=== PATIENT | female | born 1960 | race Caucasian/White ===

== ENCOUNTER 2019-11-14 12:52 | Outpatient (CLI) | payer OTHER, SELFPAY ==
--- NOTE | ~2019-11-14 | CT_ITS ---
EXAMINATION: CT chest wo con EXAM DATE: 11/14/2019 13:18 INDICATION: Deformity of right-sided sternoclavicular region. TECHNIQUE: Spiral CT of the chest without contrast. Axial, coronal and sagittal images were reviewe d. Coronal maximum intensity pixel images of chest reviewed. The dose-length product (DLP) for this examination was 318.40 mGy-cm. The exposure was tailored according to patient size (auto mA exposur e control), and iterative reconstruction (ASIR) was used as additional dose reduction technique. The re is no prior study for comparison. FINDINGS: There is an externally placed marker identified. There is no subcutaneous mass or soft tiss ue mass identified deep to this. There is moderate bilateral acromioclavicular primary osteoarthritis , could be causing the palpable abnormality of concern. There is right basilar granuloma. There are no pleural or pericardial effusions. Tracheobronchial tree is patent. There is no mediastinal, hi lar or axillary lymphadenopathy. There is no pneumothorax. Heart normal in size. There is mild coronary arterial calcification, arterial sclerosis. Low-density 2 cm right liver lobe lesion, not s ignificantly changed compared to a CT from 2015 and previously evaluated with MR. There are cholecyst ectomy clips. There is moderate thoracic spondylosis without osteoblastic or osteolytic lesions iden tified. IMPRESSION: 1. Moderate bilateral acromioclavicular osteoarthritis. 2. Right upper lobe lesion unchanged likely benign. Reviewed, dictated and finalized at location B. 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
== END 2019-11-14 12:53 | disposition home or self-care (01) ==
PROVIDERS: PCP Family Medicine; Visit Provider Family Medicine
DX: M95.8 Other specified acquired deformities of musculoskeletal system (principal); M19.011 Primary osteoarthritis, right shoulder; M19.012 Primary osteoarthritis, left shoulder
CPT/HCPCS: 71250

== ENCOUNTER 2020-02-11 11:27 | Outpatient (CLI) | payer OTHER, SELFPAY ==
--- NOTE | ~2020-02-11 | MM_ITS ---
EXAMINATION: MM diagnostic una RT w maria alejandra HISTORY: Follow-up right breast calcifications. TECHNIQUE: Additional 3-D tomosynthesis images of the right breast were performed and synthetic 2-D i mages were generated. CAD analysis was submitted and interpreted. COMPARISON: Comparison to multiple prior studies sequentially, with oldest reviewed study dated 10/2013. FINDINGS: Breast composed of scattered areas of fibroglandular density. There are no new masses or ar chitectural distortion in the right breast. There are stable punctate calcifications in the upper out er quadrant of the right breast posteriorly, likely benign. IMPRESSION: 1. Stable likely benign right breast calcifications, upper outer quadrant. 2. Recommend 6 month follow-up diagnostic bilateral mammogram recommended BI-RADS category 3, probably benign findings. Reviewed, dictated and finalized at location A.
== END 2020-02-11 11:28 | disposition home or self-care (01) ==
PROVIDERS: PCP Family Medicine; Visit Provider Obstetrics & Gynecology
DX: R92.8 Other abnormal and inconclusive findings on diagnostic imaging of breast (principal)
CPT/HCPCS: 77061; 77065; G0279

== ENCOUNTER 2020-04-15 09:39 | Outpatient (CLI) | payer OTHER, SELFPAY ==
--- NOTE | 2020-04-15 11:00 | NEURO_ITS ---
Patient Number: [id number] Impression: # Complains of pain and numbness of hands. # Bilateral moderate Carpal Tunnel Syndrome. # Right ulnar neuropathy across the elbow. # Needle/EMG exam neurogenic. Nerve Conduction Studies Anti Sensory Summary Table Stim Site NR Peak (ms) P-T Amp (?V) Site1 Site2 Delta-P (ms) Dist (cm) El (m/s) Left Median Anti Sensory (2-3nd Digit) Wrist 3.8 25.9 Wrist 2-3nd Digit 3.8 14.0 37 Wrist 4.2 20.0 Wrist 2-3nd Digit 3.8 14.0 37 Right Median Anti Sensory (2-3nd Digit) Wrist 4.8 13.1 Wrist 2-3nd Digit 4.8 14.0 29 Wrist 5.4 15.0 Wrist 2-3nd Digit 4.8 14.0 29 Left Radial Anti Sensory (Base 1st Digit) Wrist 2.2 20.1 Wrist Base 1st Digit 2.2 0.0 Right Radial Anti Sensory (Base 1st Digit) Wrist 2.6 43.2 Wrist Base 1st Digit 2.6 0.0 Left Ulnar Anti Sensory (5th Digit) Wrist 2.4 29.4 Wrist 5th Digit 2.4 14.0 58 Right Ulnar Anti Sensory (5th Digit) Wrist 2.4 30.7 Wrist 5th Digit 2.4 14.0 58 Motor Summary Table Stim Site NR Onset (ms) O-P Amp (mV) Site1 Site2 Delta-0 (ms) Dist (cm) El (m/s) Left Median Motor (Abd Poll Brev) Wrist 5.1 2.3 Elbow Wrist 4.6 27.0 59 Elbow 9.7 1.5 Right Median Motor (Abd Poll Brev) Wrist 5.8 2.7 Elbow Wrist 4.2 26.0 62 Elbow 10.0 2.1 Left Ulnar Motor (Abd Dig Minimi) Wrist 2.7 8.7 A Elbow Wrist 4.6 29.0 63 A Elbow 7.3 6.5 Right Ulnar Motor (Abd Dig Minimi) Wrist 2.5 4.8 A Elbow Wrist 5.9 27.0 46 A Elbow 8.4 3.3 B Elbow Wrist 4.1 21.0 51 B Elbow 6.6 3.4 F Wave Studies NR F-Lat (ms) L-R F-Lat (ms) Left Median (Mrkrs) (Abd Poll Brev) 29.32 0.57 Right Median (Mrkrs) (Abd Poll Brev) 29.88 0.57 Left Ulnar (Mrkrs) (Abd Dig Min) 26.99 1.84 Right Ulnar (Mrkrs) (Abd Dig Min) 28.83 1.84 EMG Side Muscle Nerve Root Ins Act Fibs Amp Dur Recrt Comment Right 1stDorInt Ulnar C8-T1 Nml Nml Nml >12ms Reduced Right Ext Indicis Radial (Post Int) C7-8 Nml Nml Nml Nml Nml Right Ext Digitorum Radial (Post Int) C7-8 Nml Nml Nml Nml Nml Right BrachioRad Radial C5-6 Nml Nml Nml Nml Nml Right PronatorTeres Median C6-7 Nml Nml Nml Nml Nml Right Abd Poll Brev Median C8-T1 Nml Nml Nml >12ms Reduced Left 1stDorInt Ulnar C8-T1 Nml Nml Nml Nml Nml Left Ext Indicis Radial (Post Int) C7-8 Nml Nml Nml Nml Nml Left Ext Digitorum Radial (Post Int) C7-8 Nml Nml Nml Nml Nml Left BrachioRad Radial C5-6 Nml Nml Nml Nml Nml Left PronatorTeres Median C6-7 Nml Nml Nml Nml Nml Left Abd Poll Brev Median C8-T1 Nml Nml Nml >12ms Reduced Right ABD Dig Min Ulnar C8-T1 Nml Nml Nml >12ms Reduced Left ABD Dig Min Ulnar C8-T1 Nml Nml Nml Nml Nml MTDD
== END 2020-04-15 09:40 | disposition home or self-care (01) ==
PROVIDERS: PCP Family Medicine; Visit Provider Family Medicine
DX: G56.03 Carpal tunnel syndrome, bilateral upper limbs (principal)
CPT/HCPCS: 95886; 95911

== ENCOUNTER 2020-04-21 14:15 | Outpatient (CLI) | payer OTHER, SELFPAY ==
--- NOTE | ~2020-04-21 | XR_ITS ---
XR foot RT min 3V DATE: 04/21/2020 14:33 INDICATION: Fall 2 weeks ago. Lateral pain, right foot TECHNIQUE: 4 views COMPARISON: None FINDINGS: Prominent posterior and minimal plantar calcaneal enthesopathy. No fracture, dislocation, periosteal reaction or bone destruction is evident. IMPRESSION: Calcaneal enthesopathy No fracture or dislocation Reviewed, dictated and finalized at location B.
== END 2020-04-21 14:16 | disposition home or self-care (01) ==
LOC: ANHIMG 14:23
PROVIDERS: PCP Family Medicine; Visit Provider Family Medicine
DX: M79.671 Pain in right foot (principal); M77.31 Calcaneal spur, right foot
CPT/HCPCS: 73630

== ENCOUNTER 2020-05-29 10:19 | Emergency (ER) | payer OTHER, SELFPAY ==
--- NOTE | ~2020-05-29 | XR_ITS ---
EXAMINATION: XR elbow LT min 3V DATE: 05/29/2020 12:16 INDICATION: Left elbow pain, initial encounter TECHNIQUE: Anteroposterior, two oblique and lateral views of the left elbow were obtained. COMPARISON: None. FINDINGS: There is an acute, traumatic, closed, intra-articular fracture of the radial head. A small joint effusion is present. No additional acute osseous findings are posterior soft tissue swelling is noted at the olecranon. IMPRESSION: 1. Intra-articular fracture of the radial head with small elbow joint effusion. Reviewed, dictated and finalized at location B.
--- NOTE | ~2020-05-29 | XR_ITS ---
XR shoulder LT min 2V DATE: 05/29/2020 10:56 INDICATION: Fall down 3 steps last evening. Left shoulder injury. Generalized left shoulder pain. TECHNIQUE: 5 views COMPARISON: None FINDINGS: No fracture or dislocation, periosteal reaction or bone destruction or abnormal soft tissue calcification is detected. IMPRESSION: Negative left shoulder Reviewed, dictated and finalized at location A. IMPRESSION: Negative left shoulder
[2020-05-29 10:33] VITALS: BP 94/70; PULSE 90; RESP 16; TEMP 35.6; O2SAT 98
[2020-05-29 11:27] VITALS: BP 110/66; PULSE 89; RESP 19; O2SAT 98
[2020-05-29 11:28] VITALS: BP 110/66; PULSE 89; RESP 17; O2SAT 98
--- NOTE | 2020-05-29 11:54 | ED.UPPEXIN ---
HPI - Extremity Injury (Upper) General Chief Complaint: Extremity Injury, Upper <Austyn Pittman PA-C - Last Filed: 05/29/20 13:12> Stated Complaint: fell and hurt my shoulder <Austyn Pittman PA-C - Last Filed: 05/29/20 13:12> Time Seen by Provider: 05/29/20 11:15 <Austyn Pittman PA-C - Last Filed: 05/29/20 13:12> Source: patient <Austyn Pittman PA-C - Last Filed: 05/29/20 13:12> Mode of arrival: ambulatory <Austyn Pittman PA-C - Last Filed: 05/29/20 13:12> Limitations: no limitations <Austyn Pittman PA-C - Last Filed: 05/29/20 13:12> History of Present Illness HPI narrative: Patient is a 59-year-old female who presents to emergency department for evaluation of fall that occurred last night tripped fell backwards injuring the left shoulder and left elbow patient notes she did strike her head denies loss of consciousness syncope patient on arrival to emergency department complains of left shoulder and left elbow pain patient has not taken anything for her symptoms nor she been seen for this complaint <Austyn Pittman PA-C - Last Filed: 05/29/20 13:12> Related Data Home Medications: Home Medications Medication Instructions Recorded Confirmed lisinopril 20 mg tablet 20 mg PO BID 10/09/19 05/26/20 <Austyn Pittman PA-C - Last Filed: 05/29/20 13:12> Allergies/Adverse Reactions: Allergies Allergy/AdvReac Type Severity Reaction Status Date / Time levofloxacin Allergy Intermediate Nausea Verified 05/29/20 11:29 <Austyn Pittman PA-C - Last Filed: 05/29/20 13:12> Review of Systems Review of Systems: All systems reviewed & are unremarkable except as noted in HPI and below <Austyn Pittman PA-C - Last Filed: 05/29/20 13:12> [facility] Past Medical History Medical History: Medical History Acquired clavicle deformity Anxiety Benign essential hypertension Bilateral carpal tunnel syndrome Foot pain, right Hypothyroidism Ulnar nerve compression <LORRAINE Snow Last Filed: 05/29/20 13:12> Social History Social History: Social History Smoking status: Never smoker Alcohol intake: never <Austyn Pittman PA-C - Last Filed: 05/29/20 13:12> Exam Narrative: Exam Narrative: GENERAL: Well-appearing, well-nourished, and in no acute distress. HEAD: Normocephalic, atraumatic. EYES: PERRLA and EOMI. ENT: Nares clear, no rhinorrhea or epistaxis. Mucous membranes moist. NECK: Supple. No adenopathy or masses. CHEST: Clear to auscultation. No respiratory distress. No wheezes rales or rhonchi HEART: Regular rate and rhythm. No murmur heard. Normal peripheral pulses. EXTREMITIES: Normal range of motion. No edema. Patient with tenderness of the left shoulder joint as well as the left elbow joint patient has an abrasion of the posterior left elbow. No cervical thoracic or lumbar tenderness to palpation SKIN: Warm, dry, no rash. NEURO: No focal deficits. Alert and oriented x3. Cranial nerves II through XII grossly intact. Neurovascularly intact. Normal speech and gait PSYCH: Normal mood and affect. <LORRAINE Snow Last Filed: 05/29/20 13:12> Course Course Emergency Course: Patient was placed in long-arm splint patient will be referred to orthopedic surgery aware of case findings treatment plan and diagnosis <Austyn Pittman PA-C - Last Filed: 05/29/20 13:12> Consultations Consultation #1: Discussion was made with orthopedic surgery who will follow the patient in clinic <Austyn Pittman PA-C - Last Filed: 05/29/20 13:12> Date: 05/29/20 <LORRAINE Snow Last Filed: 05/29/20 13:12> Time: 13:08 <LORRAINE Snow Last Filed: 05/29/20 13:12> Vital Signs Vital signs: Vital Signs Temperature 35.6 C L 05/29/20 10:33 Pulse Rate 90 05/29/20 10:33 Respir
--- NOTE | 2020-05-29 12:06 | PC.NURSE ---
Pt to XRAY via WC.
[2020-05-29] MEDS: KETOROLAC (*BKC) 60 MG/2 ML VIAL 30 MG IM (12:15)
[2020-05-29 13:10] VITALS: BP 114/66; PULSE 86; RESP 14; O2SAT 100
[2020-05-29 13:24] VITALS: BP 116/66; PULSE 80; RESP 14; O2SAT 100
== END 2020-05-29 13:25 | disposition home or self-care (01) ==
PROVIDERS: Emergency Provider Emergency Medicine; PCP Family Medicine
DX: S52.122A Displaced fracture of head of left radius, initial encounter for closed fracture (principal); W01.0XXA Fall on same level from slipping, tripping and stumbling without subsequent striking against object, initial encounter; I10 Essential (primary) hypertension; E03.9 Hypothyroidism, unspecified
CPT/HCPCS: 29105; 73030; 73080; 96372; 99284; A4565; J1885

== ENCOUNTER 2020-09-23 12:37 | Outpatient (CLI) | payer OTHER, SELFPAY ==
--- NOTE | ~2020-09-23 | MR_ITS ---
EXAMINATION: MR shoulder LT wo con DATE: 09/23/2020 14:52 INDICATION: Left shoulder pain. Anterior displaced fracture of sternal end of left clavicle. TECHNIQUE: Magnetic resonance imaging (MRI) of the left shoulder was performed without intravenous co ntrast. Sequences included axial PD-weighted FS FSE, coronal oblique PD-weighted FS FSE and T2-weight ed FS FSE, and sagittal oblique T2-weighted FS FSE and T1-weighted FSE. COMPARISON: Left clavicle radiographs 07/20/2020 FINDINGS: Coracoacromial arch: The acromion undersurface is curved in morphology with anterior hook (type III). There is moderate ac romioclavicular joint osteoarthritis. There is mild subacromial/subdeltoid bursitis. Rotator cuff: There is moderate supraspinatus and infraspinatus tendinopathy. Teres minor tendon is normal. There i s moderate subscapularis tendinopathy. There is no asymmetric fatty atrophy of the rotator cuff muscl e bellies. Biceps tendon and glenoid labrum: Biceps tendon is in bicipital groove. The intra-articular biceps tendon is normal. The glenoid labrum is normal. Fluid: There is a small glenohumeral joint effusion. Bones/cartilage: There is oblique fracture of head of left clavicle. The distal fracture fragment demonstrates 9 mm an terior displacement. Glenoid cartilage is normal. Humeral head cartilage is normal. IMPRESSION: 1. Oblique fracture of head of left clavicle. 2. Moderate rotator cuff tendinopathy. No tear. 3. Moderate acromioclavicular joint osteoarthritis. 4. Mild subacromial/subdeltoid bursitis. 5. Small glenohumeral joint effusion. Reviewed, dictated and finalized at location A. 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
== END 2020-09-23 12:38 | disposition home or self-care (01) ==
PROVIDERS: PCP Family Medicine; Visit Provider Orthopaedic Surgery
DX: S42.013A Anterior displaced fracture of sternal end of unspecified clavicle, initial encounter for closed fracture (principal); X58.XXXA Exposure to other specified factors, initial encounter; M19.012 Primary osteoarthritis, left shoulder; M25.412 Effusion, left shoulder
CPT/HCPCS: 73221

== ENCOUNTER 2020-12-05 09:15 | Outpatient (CLI) | payer OTHER, SELFPAY ==
[2020-12-05 09:30] LABS: Basophils Percent Auto 0.6 % (0.2-1.2); Eosinophils Absolute Auto 0.1 K/mm3 (0-0.3); Hematocrit 40.6 % (37.0-47.0); Hemoglobin 13.7 g/dL (12.0-15.0); Immature Granulocyte Absolute 0.01 K/mm3 (0.00-0.031); Immature Granulocyte Percent A 0.2 % (0-0.5); Lymphocytes Absolute Auto 1.94 K/mm3 (0.9-3.2); Lymphocytes Percent Auto 30.2 % (18.3-44.2); Mean Corpuscular HGB Conc 33.7 g/dl (32-36); Mean Corpuscular Hemoglobin 31.7 pg (26-34); Mean Platelet Volume 9.6 fl (7.4-10.4); Monocytes Absolute Auto 0.5 K/mm3 (0.1-0.6); Monocytes Percent Auto 7.8 % (2.6-8.5); Neutrophils Absolute Auto 3.8 K/mm3 (1.3-6.7); Neutrophils Percent Auto 59.2 % (45.5-73.1); Platelet Count Result 191 k/mm3 (150-375); Red Blood Count 4.32 M/mm3 (4.2-5.4); Red Cell Distribution Width 13.6 % (11.5-14.5); White Blood Count 6.4 K/mm3 (4.5-10.0)
[2020-12-05 10:01] LABS: Alanine Aminotransferase 21 U/L (4-35); Albumin Level 4.1 g/dL (3.5-5.1); Alkaline Phosphatase 88 U/L (38-126); Anion Gap 5 mmol/L (8-16); Aspartate Amino Transferase 26 U/L (14-36); Bilirubin,Total 0.8 mg/dL (0.2-1.3); Blood Urea Nitrogen 18 mg/dL (7-17); Calcium 9.1 mg/dL (8.4-10.2); Carbon Dioxide 33 mmol/L (22-30); Chloride 103 mmol/L (98-107); Cholesterol 159 mg/dL (0-200); Estimated Glomerular Filt Rate > 60; Glucose 96 mg/dL (65-105); HDL Direct 42 mg/dL; Potassium 4.4 mmol/L (3.4-5.0); Sodium 141 mmol/L (137-145); Triglycerides 105 mg/dL (<150)
[2020-12-05 10:12] LABS: LDL Cholesterol Direct 94 mg/dL
== END 2020-12-05 09:16 | disposition home or self-care (01) ==
LOC: ANHLAB 09:17
PROVIDERS: PCP Family Medicine; Visit Provider Physician Assistant Medical
DX: I10 Essential (primary) hypertension (principal); K76.0 Fatty (change of) liver, not elsewhere classified; Z13.220 Encounter for screening for lipoid disorders; E03.9 Hypothyroidism, unspecified
CPT/HCPCS: 36415; 80053; 80061; 84443; 85025

== ENCOUNTER 2021-03-12 08:24 | Outpatient (CLI) | payer OTHER, SELFPAY ==
--- NOTE | ~2021-03-12 | US_ITS ---
EXAMINATION: US abdomen complete DATE: 03/12/2021 09:04 INDICATION: Unspecified abdominal pain TECHNIQUE: Multiple grayscale and Doppler ultrasound images of the abdomen were obtained. COMPARISON: MRI, 06/23/2015 FINDINGS: The head and body of the pancreas are normal. The pancreatic tail is obscured by bowel gas. The liver demonstrates increased echogenicity, heterogenous echotexture, and decreased through trans mission. The known hemangioma of the right hepatic lobe is not well demonstrated. No surface nodulari ty. Normal hepatopetal flow in the main portal vein. The gallbladder is surgically absent. The normal common bile duct measures 5 mm. The visualized portions of the aorta and inferior vena cava are norm al. The right kidney measures 9.5 x 5.1 x 4.7 cm. The left kidney measures 10.6 x 4.9 x 5.4 cm. The kidne ys demonstrate normal parenchymal echogenicity. There is no hydronephrosis. The spleen is normal in a ppearance and measures 10.1 cm. IMPRESSION: 1. No sonographic correlate for the patient's symptoms. 2. Diffuse hepatic steatosis. Reviewed, dictated and finalized at location A.
== END 2021-03-12 08:25 | disposition home or self-care (01) ==
PROVIDERS: PCP Family Medicine; Visit Provider Family Medicine
DX: R10.9 Unspecified abdominal pain (principal); K76.0 Fatty (change of) liver, not elsewhere classified
CPT/HCPCS: 76700

== ENCOUNTER 2021-05-05 13:30 | Outpatient (RCR) | payer OTHER, SELFPAY ==
--- NOTE | 2021-04-07 13:49 | PTOPEVAL ---
INITIAL PHYSICAL THERAPY EVALUATION and PLAN OF CARE Thank you for referring Melanie Stanley to [facility].? Melanie is scheduled to be seen for physical therapy? 2x/week for 4 weeks. Please review, sign, date and return this plan of care SHERRILL. I agree with and certify that the following plan of care is medically necessary. Referring Physician Date Admitting Provider: Attending Provider: WILLY oPrtillo Referring Provider: *PT Outpatient Evaluation Start: 04/07/21 12:36 Freq: Status: Active Protocol: Document 04/07/21 12:36 LUI (Rec: 04/07/21 13:48 LUI [id number]) Therapy Assessment Status Assessment Status Assessment Status Evaluation Outpatient Past Medical History Past Medical History Source of Past Medical History Patient Cardiovascular History Hx Hypertension Yes Gastrointestinal History Hx Appendectomy Yes: 1999 Hx Cholecystectomy Yes: 1989 Musculoskeletal History Hx Fractures Yes: L radial head fx, L clavicle fx Hx Other Musculoskeletal Disorders Yes: bilateral carpal tunnel, ulnar nerve compression, R foot pain Endocrine History Hx Hypothyroidism Yes Evaluation Information Problem Diagnosis Lumbago with sciatica, R and L side, chronic pain Onset 10 years Additional Evaluation Detail 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 She will have Family increased pain with prolonged sitting or with lots of walking. Gains some relief of discomfort when lying on back on a harder surface. But as soon as she gets back up - pain returns. Did see chiropractor in past - temporary relief obtained. No problems sleeping. Moves slow in the morning. Not real relief with hot or cold on back. 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
--- NOTE | 2021-04-30 13:33 | PCPTNOTE ---
Patient called & cancelled scheduled appointment this date due to illness - vomiting.
--- NOTE | 2021-05-05 14:32 | PTOPEVAL ---
PHYSICAL THERAPY DISCHARGE SUMMARY Thank you for referring Melanie Stanley to [facility].? Melanie has been seen x 7 visits in PT - short term day of PT relief has been achieved but no longer carry over has been achieved. Melanie has been encouraged to continue with her HEP. I agree with Melanie's discharge from PT. Referring Physician Date Admitting Provider: Attending Provider: WILLY Portillo Referring Provider: Therapy Assessment Status Assessment Status Assessment Status Discharge Evaluation Information Problem Diagnosis Lumbago with sciatica, R and L side, chronic pain Subjective Information Melanie states that sitting/ Query Text:As Reported By Patient/ driving is still bothering her Family . If she limits her activity she feels better - but then when she goes to move around increase in discomfort. She does state that she does receive some relief of discomfort day of treatment but the discomfort returns the next day. Pain Assessment Timing of Pain Assessment Timing of Pain Assessment Assessment Pain Scale Pain Scale Used Numeric (1 - 10) Self Report Pain Assessment Lower Back Reported Pain Level 5 Lowest Pain Intensity 3 Greatest Pain Intensity 9 Cervical and Lumbar ROM Lumbar ROM Lumbar Flexion (0-90) 45 Query Text:Active in Degrees Lumbar Extension (0-40) 15 Query Text:Active in Degrees Lumbar Lateral Flexion Right (0-40) 12 Query Text:Active in Degrees Lumbar Lateral Flexion Left (0-40) 12 Query Text:Active in Degrees Lumbar Comments discomfort with trunk flexion and R > L side bending pelvis level - very mild decrease with R SIJ motion with trunk motion Palpation Assessment Palpation Palpation P-A mob done - decreased sacral discomfort, none with lumbar spine, marked increased tenderness R buttock - centrally towards insertion PT Clinical Summary Clinical Summary Protocol: PTEVCODE PT Clinical Summary Modified Oswestry LBP Questionnaire - 44% Melanie states that when has PT - the rest of the day she feels better. Still limited with sitting and activity level. W
== END 2021-05-10 09:11 | disposition home or self-care (01) ==
LOC: ANHHIPT 13:30
PROVIDERS: PCP Family Medicine; Visit Provider Physician Assistant Medical
DX: M54.41 Lumbago with sciatica, right side (principal); M54.42 Lumbago with sciatica, left side; G89.29 Other chronic pain
CPT/HCPCS: 97014; 97110; 97140; 97162; G0283

== ENCOUNTER 2021-05-12 14:06 | Outpatient (CLI) | payer OTHER, SELFPAY ==
--- NOTE | ~2021-05-12 | XR_ITS ---
XR_CERV2-3V_CR DATE: 05/12/2021 14:26 INDICATION: Neck pain TECHNIQUE: AP, open-mouth, lateral, swimmer views COMPARISON: None FINDINGS: C1 and C2 are normally aligned and the odontoid process is intact. No fracture or dislocati on or locked facet or prevertebral soft tissue swelling. Cervical interspaces appear preserved. IMPRESSION: No significant abnormality Reviewed, dictated and finalized at Location A. Reviewed, dictated and finalized at location A. IMPRESSION: No significant abnormality
== END 2021-05-12 14:07 | disposition home or self-care (01) ==
LOC: ANHIMG 14:09
PROVIDERS: PCP Family Medicine; Visit Provider Physician Assistant Medical
DX: M54.2 Cervicalgia (principal); G89.29 Other chronic pain
CPT/HCPCS: 72040

== ENCOUNTER 2021-07-07 12:18 | Outpatient (CLI) | payer OTHER, SELFPAY ==
--- NOTE | ~2021-07-07 | XR_ITS ---
XR abdomen/kub 1V 07/07/2021 12:46 INDICATION: Hematuria TECHNIQUE: KUB COMPARISON: CT dated 06/17/2015 FINDINGS: Bowel gas pattern is normal. There is no evidence of free air, mass, organomegaly, ascites or obstruction. No abnormal calculi are seen. The bones appear intact. There are cholecystectomy c lips. There is moderate lower thoracic and lumbar spondylosis with dextrocurvature scoliosis. IMPRESSION: 1: No acute abdominal abnormality identified. Reviewed, dictated and finalized at location B.
== END 2021-07-07 12:19 | disposition home or self-care (01) ==
LOC: ANHIMG 12:19
PROVIDERS: PCP Family Medicine; Visit Provider Physician Assistant Medical
DX: R31.9 Hematuria, unspecified (principal); R10.9 Unspecified abdominal pain
CPT/HCPCS: 74018

== ENCOUNTER 2021-07-10 08:00 | Outpatient (CLI) | payer OTHER, SELFPAY ==
--- NOTE | ~2021-07-10 | CT_ITS ---
EXAMINATION: CT abdomen pelvis wo con DATE: 07/10/2021 08:27 INDICATION: Hematuria TECHNIQUE: Computed tomography (CT) of the abdomen and pelvis was performed without intravenous contr ast. The dose-length product (DLP) was 517.65 mGy-cm. Automated exposure control and iterative recons truction technique were employed. COMPARISON: 06/17/2015 FINDINGS: Minimal dependent atelectasis is present in the lung bases. The heart size is normal. There is a calcified granuloma of the right lower lobe. The gallbladder is surgically absent. The spleen, pancreas, and adrenal glands are normal. A chronic, stable lesion of the right hepatic lobe has been previously characterized as a hemangioma. The kidneys are normal. No stones are identified in the kid neys, ureters, or bladder. There is no hydronephrosis or hydroureter. There is chronic periportal lym phadenopathy, likely reactive. There is no free intraperitoneal gas or evidence of bowel obstruction. Colonic diverticulosis is present without evidence of diverticulitis. There is severe lumbar spondyl osis. IMPRESSION: 1. No CT correlate for the patient's symptoms. Reviewed, dictated and finalized at location A.
== END 2021-07-10 08:01 | disposition home or self-care (01) ==
LOC: ANHIMG 08:04
PROVIDERS: PCP Family Medicine; Visit Provider Family Medicine
DX: R31.29 Other microscopic hematuria (principal)
CPT/HCPCS: 74176

== ENCOUNTER 2021-08-05 11:37 | Emergency (ER) | payer OTHER, SELFPAY ==
[2021-08-05 11:49] VITALS: BP 131/79; PULSE 66; RESP 16; TEMP 36.5; O2SAT 100
[2021-08-05] MEDS: ONDANSETRON HCL ODT 4 MG TABLET PO (13:46)
[2021-08-05] MEDS: KETOROLAC (*BKC) 60 MG/2 ML VIAL IM (13:46)
[2021-08-05] MEDS: HYDROmorphone HCL INJ (*CRX) 1 MG/ML SYR IM (13:47)
--- NOTE | 2021-08-05 13:50 | ED.BACK ---
HPI - Back Pain/Injury General Chief Complaint: Back Pain/Injury Stated Complaint: L HIP/BUTTOCK PAIN Time Seen by Provider: 08/05/21 13:13 Source: patient, RN notes reviewed and old records reviewed Mode of arrival: ambulatory Limitations: no limitations History of Present Illness HPI Narrative: This is a 60 year old female who presents for evaluation of left flank pain. She developed pain approximately 1 month ago. She is having sharp pain located left lower flank that is radiating to her left hip and thigh. She was evaluated by her PCP for this pain, and she had Urinalysis, KUB and CT abdomen and pelvis performed. She was also started on muscle relaxer and tramadol. Her KUB and CT were negative for kidney stones but it did show severe lumbar spondylosis. She has been referred to pain management but patient states that clinic is closed. She is continuing to have pain so she came to ER. Her pain is intermittently worsening, and it is worse with walking sometimes. She reports numbness to left thigh but denies leg weakness. She denies abdominal pain, nausea, vomiting, fever, chills, urinary retention or bowel incontinence. She last took tramadol for pain this morning. She currently rates pain as 8/10. Related Data Allergies Allergy/AdvReac Type Severity Reaction Status Date / Time levofloxacin Allergy Intermediate Nausea Verified 07/07/21 11:01 Review of Systems Review of Systems: All systems reviewed & are unremarkable except as noted in HPI and below PMFSH Past Medical History Medical History Acquired clavicle deformity Adult BMI 36.0-36.9 kg/sq m Anxiety Benign essential hypertension Bilateral carpal tunnel syndrome BMI 35.0-35.9,adult BMI 37.0-37.9, adult Carpal tunnel syndrome of right wrist Clavicle fracture, sternal end Foot pain, right Hypothyroidism Left radial head fracture Ulnar nerve compression Surgical History Surgical History History of appendectomy History of cholecystectomy Family History Family History Father Carcinoma of colon Mother No problems noted. Sibling No problems noted. 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 Gender identity (if verbalized by the patient): Female Sexual Orientation (if Verbalized by the Patient): Straight or Heterosexual Spiritual care concerns: No Agree to blood products: Yes Exam Const: General: no acute distress and alert Orientation/consciousness: patient oriented x3 HENMT: Head: normocephalic and atraumatic Ears: normal EAC's Eyes: Pupils: Equal, round and reactive pupils present EOM: EOMs intact bilaterally Resp: Effort & Inspection: normal respiratory effort and no retractions Auscultation: clear to auscultation bilaterally Cardio: Rate: regular rate Rhythm: regular rhythm Heart sounds: no murmurs Other: bilateral palpable pedal pulses GI: GI Palp: Yes Soft to palpation, No Tenderness to palpation present (GI) and No Guarding due to palpation present (GI) Auscultation: normal bowel sounds : General: Yes no CVA tenderness Back/Spine/Pelvis: Thoracic/Lumbar Spine: straight leg raise negative bilaterally Skin: General skin exam: normal color Rashes: no rashes Neuro: General: patient oriented x3, moves all extremities and CN's II-XI intact bilaterally Course Reevaluation(s) Reevaluation #1: I Discussed with patient that I reviewed imaging and Ua performed for her symptoms. Her pain seems to be related to lumbar radicu
[2021-08-05 14:15] LABS: Add Urine Microscopic? YES; Appearance Urine Clear (Clear); Bilirubin Urine Negative (Negative); Blood Urine Negative (Negative); Color Urine Yellow (Yellow); Glucose Urine UA Negative (Negative); Ketones Urine Negative (Negative); Leukocyte Esterase Ur Trace LEU/UL (Negative); Mucus Urine Rare /lpf; Nitrate Urine Negative (Negative); Protein Urine Negative (Negative); Specific Grav Ur 1.011 (1.001-1.035); Squamous Epithelial Cell Urine Rare /hpf (Few); Urobilinogen Urine Negative mg/dL (<2.0); WBC Urine 0-3 /hpf
[2021-08-05 14:42] VITALS: BP 141/79; PULSE 70; RESP 16; O2SAT 98
== END 2021-08-05 14:59 | disposition home or self-care (01) ==
PROVIDERS: Emergency Provider General Practice; PCP Family Medicine
DX: M54.16 Radiculopathy, lumbar region (principal); I10 Essential (primary) hypertension; E03.9 Hypothyroidism, unspecified; F41.9 Anxiety disorder, unspecified
CPT/HCPCS: 81001; 96372; 99284; A9270; J1170; J1885

== ENCOUNTER 2021-10-25 14:00 | Outpatient (CLI) | payer OTHER, SELFPAY ==
--- NOTE | ~2021-10-25 | XR_ITS ---
XR chest 2V DATE: 10/25/2021 14:14 INDICATION: Cough for 2 months. Pneumonia. TECHNIQUE: PA and lateral views COMPARISON: November 14, 2019 CT chest November 23, 2015 2 view chest FINDINGS: Heart size is within normal range. Is aortic tortuosity. No pulmonary infiltrate or consolidation, pleural effusion or pulmonary vascular congestion or pneumo thorax. Scoliosis and degenerative spurring of the thoracic and lumbar spine. Status post cholecystectomy. IMPRESSION: No active cardiopulmonary disease Reviewed, dictated and finalized at location A. 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
== END 2021-10-25 14:01 | disposition home or self-care (01) ==
PROVIDERS: PCP Family Medicine; Visit Provider Nurse Practitioner Family
DX: J18.9 Pneumonia, unspecified organism (principal)
CPT/HCPCS: 71046

== ENCOUNTER 2022-01-17 13:27 | Emergency (ER) | payer OTHER, SELFPAY ==
--- NOTE | ~2022-01-17 | XR_ITS ---
EXAMINATION: XR shoulder LT min 2V INDICATION: Left shoulder pain TECHNIQUE: Four views of the left shoulder are submitted. COMPARISON: 05/29/2020 FINDINGS: Normal alignment. No shoulder fracture. There is moderate osteoarthritis of the acromioclav icular joint. Mild glenohumeral joint osteoarthritis is noted. Soft tissues are unremarkable. IMPRESSION: 1. No acute osseous abnormality of the left shoulder. Reviewed, dictated and finalized at location A.
--- NOTE | ~2022-01-17 | CT_ITS ---
EXAMINATION: CT cervical spine wo con DATE: 01/17/2022 17:08 INDICATION: Neck pain TECHNIQUE: Computed tomography (CT) of the cervical spine was performed without intravenous contrast. The dose-length product (DLP) was 927.53 mGy-cm. Automated exposure control and iterative reconstruc tion technique were employed. COMPARISON: None FINDINGS: There is no fracture, dislocation, or subluxation. The vertebral body heights and intervert ebral disc spaces are maintained. The odontoid is intact. The prevertebral soft tissues are normal. T here is mild facet and uncovertebral joint osteoarthritis. Calcified nodules of the thyroid measure u p to 1.4 cm on the right. IMPRESSION: 1. Mild cervical spondylosis without acute findings. 2. Multiple thyroid nodules. Consider nonemergent thyroid ultrasound for risk stratification. Reviewed, dictated and finalized at location A. IMPRESSION: 1. Mild cervical spondylosis without acute findings. 2. Multiple thyroid nodules. Consider nonemergent thyroid ultrasound for risk s tratification.
--- NOTE | ~2022-01-17 | XR_ITS ---
EXAMINATION: XR chest 2V DATE: 01/17/2022 15:48 INDICATION: Left rib pain TECHNIQUE: PA and lateral views of the chest are obtained. COMPARISON: Radiographs from today FINDINGS: There is mild atelectasis of the left lung base. A trace left pleural effusion is present. There is no pneumothorax. The cardiomediastinal silhouette is normal. There is moderate thoracic spon dylosis. Suspected nondisplaced left rib fractures described on rib series are not well demonstrated. IMPRESSION: 1. Minimal left basilar atelectasis. 2. Small left pleural effusion. Reviewed, dictated and finalized at location A.
--- NOTE | ~2022-01-17 | XR_ITS ---
EXAMINATION: XR ribs LT 2V INDICATION: Left rib pain TECHNIQUE: Four views of the left ribs were obtained. COMPARISON: 10/25/2021 FINDINGS: Mild atelectasis of the left lung base. The heart size is normal. There are questionable no ndisplaced fractures of the anterolateral left third, fourth, and fifth ribs. Thoracolumbar dextrosco liosis is noted. Surgical clips in the right upper quadrant are likely from prior cholecystectomy. IMPRESSION: 1. Possible nondisplaced anterolateral fractures of the left third through fifth ribs. Reviewed, dictated and finalized at location A. IMPRESSION: 1. Possible nondisplaced anterolateral fractures of the left third through fift h ribs.
[2022-01-17 14:39] VITALS: BP 172/102; PULSE 78; RESP 18; TEMP 36.3; O2SAT 98
[2022-01-17 14:47] VITALS: RESP 18
[2022-01-17 15:58] VITALS: BP 184/106; PULSE 71; RESP 18; O2SAT 98
--- NOTE | 2022-01-17 16:04 | PC.NURSE ---
Pt educated on how to use incentive spirometer.
--- NOTE | 2022-01-17 16:38 | ECG_ITS ---
Measurements Intervals [place] Rate: 77 P: 60 VT: 200 QRS: 20 QRSD: 78 T: 26 QT: 340 QTc: 385 Interpretive Statements SINUS RHYTHM BORDERLINE T WAVE ABNORMALITY- ANTEROLATERAL LEADS BASELINE ARTIFACT- I, II, III, AVR, AVL, AVF, V1 BORDERLINE ECG Electronically Signed On 01-17-2022 17:43:57 CDT by Corey Abdi D.O.
[2022-01-17] MEDS: HYDROcodone/acetaminophen (*CRX) 5-325 MG TABLET 1 TAB PO (16:48)
[2022-01-17 17:04] LABS: Basophils Percent Auto 0.5 % (0.2-1.2); Eosinophils Absolute Auto 0.2 K/mm3 (0-0.3); Eosinophils Percent Auto 1.9 % (0-4.4); Hematocrit 42.5 % (37.0-47.0); Hemoglobin 14.3 g/dL (12.0-15.0); Immature Granulocyte Absolute 0.03 K/mm3 (0.00-0.031); Immature Granulocyte Percent A 0.4 % (0-0.5); Lymphocytes Absolute Auto 2.21 K/mm3 (0.9-3.2); Mean Corpuscular HGB Conc 33.6 g/dl (32-36); Mean Corpuscular Hemoglobin 31.4 pg (26-34); Mean Corpuscular Volume 93.4 fl (80-100); Monocytes Absolute Auto 0.6 K/mm3 (0.1-0.6); Monocytes Percent Auto 7.5 % (2.6-8.5); Neutrophils Absolute Auto 5.4 K/mm3 (1.3-6.7); Neutrophils Percent Auto 63.7 % (45.5-73.1); Platelet Count Result 194 k/mm3 (150-375); Red Blood Count 4.55 M/mm3 (4.2-5.4); Red Cell Distribution Width 13.1 % (11.5-14.5); White Blood Count 8.5 K/mm3 (4.5-10.0)
--- NOTE | 2022-01-17 17:04 | PC.NURSE ---
Pt to CT via w/c
[2022-01-17 17:15] LABS: Anion Gap 8 mmol/L (8-16); Blood Urea Nitrogen 14 mg/dL (7-17); Calcium 9.4 mg/dL (8.4-10.2); Carbon Dioxide 29 mmol/L (22-30); Chloride 101 mmol/L (98-107); Estimated CRCL calculation 77 ml/min; Estimated Glomerular Filt Rate > 60; Glucose 101 mg/dL (65-110); Potassium 4.4 mmol/L (3.4-5.0); Sodium 138 mmol/L (137-145)
--- NOTE | 2022-01-17 17:25 | ED.FALL ---
HPI - Fall General Chief Complaint: Fall <Elena Juarez PA-C - Last Filed: 01/17/22 18:45> Stated Complaint: fall, rib pain <LORRAINE Ruth Last Filed: 01/17/22 18:45> Time Seen by Provider: 01/17/22 15:05 <LORRAINE Ruth Last Filed: 01/17/22 18:45> Source: patient <LORRAINE Ruth Last Filed: 01/17/22 18:45> Mode of arrival: ambulatory <LORARINE Ruth Last Filed: 01/17/22 18:45> Limitations: no limitations <LORRAINE Ruth Last Filed: 01/17/22 18:45> History of Present Illness HPI Narrative: This is a 61 year old female that presents to the ER for left sided rib pain present after a fall last week. Reports she stripped while in the yard mowing the lawn. Reports landing on her left side. Reports today the pain started to radiate into her neck and left shoulder. She has not been evaluated since the fall. Denies hitting her head, loss of consciousness, shortness of breath, vision changes, vomiting, or numbness. <Elena Juarez PA-C - Last Filed: 01/17/22 18:45> Related Data Allergies/Adverse Reactions: Allergies Allergy/AdvReac Type Severity Reaction Status Date / Time levofloxacin Allergy Intermediate Nausea Verified 01/10/22 14:20 <LORRAINE Ruth Last Filed: 01/17/22 18:45> Review of Systems Review of Systems: CONSTITUTIONAL: Denies fever EYES: Denies visual changes CARDIOVASCULAR: Reports chest pain RESPIRATORY: Denies dyspnea. MUSCULOSKELETAL: Reports joint pain and myalgia. Denies back pain NEUROLOGIC: Denies numbness <LORRAINE Ruth Last Filed: 01/17/22 18:45> All systems reviewed & are unremarkable except as noted in HPI and below <LORRAINE Ruth Last Filed: 01/17/22 18:45> [facility] Past Medical History Medical History: Medical History Acquired clavicle deformity Adult BMI 36.0-36.9 kg/sq m Anxiety Benign essential hypertension Bilateral carpal tunnel syndrome BMI 35.0-35.9,adult BMI 36.0-36.9,adult BMI 37.0-37.9, adult BMI 37.0-37.9, adult Carpal tunnel syndrome of right wrist Clavicle fracture, sternal end Foot pain, right Hypothyroidism Left radial head fracture Leg laceration Ulnar nerve compression Urinary urgency <Elena Juarez PA-C - Last Filed: 01/17/22 18:45> Surgical History Surgical History: Surgical History History of appendectomy History of cholecystectomy <Elena Juarez PA-C - Last Filed: 01/17/22 18:45> Family History Family History: Family History Father Carcinoma of colon Mother No problems noted. Sibling No problems noted. 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 HEAD: Normocephalic, atraumatic. EYES: EOMI. ENT: Nares clear, no rhinorrhea or epistaxis. Mucous membranes moist. Oropharynx without tonsillar hypertrophy exudate or other lesions. Bilateral TMs pearly ornelas non-bulging NECK: Supple. No adenopathy or masses. CHEST: Clear to auscultation. No respiratory distress. No wheezes rales or rhonchi. Tender to palpation in
[2022-01-17 17:27] LABS: Troponin I < 0.012 ng/mL (0.000-0.034)
[2022-01-17 17:46] VITALS: BP 162/108; PULSE 73; RESP 18; O2SAT 99
== END 2022-01-17 18:52 | disposition home or self-care (01) ==
PROVIDERS: Physician Assistant; Emergency Provider Emergency Medicine; PCP Family Medicine
DX: S22.42XA Multiple fractures of ribs, left side, initial encounter for closed fracture (principal); E04.2 Nontoxic multinodular goiter; I10 Essential (primary) hypertension; E03.9 Hypothyroidism, unspecified; M47.812 Spondylosis without myelopathy or radiculopathy, cervical region; R94.31 Abnormal electrocardiogram [ECG] [EKG]; W01.0XXA Fall on same level from slipping, tripping and stumbling without subsequent striking against object, initial encounter; Y93.H2 Activity, gardening and landscaping
CPT/HCPCS: 36415; 71046; 71100; 72125; 73030; 80048; 84484; 85025; 93005; 99284; A9270

== ENCOUNTER 2022-06-10 09:10 | Outpatient (CLI) | payer OTHER, SELFPAY ==
[2022-06-10 09:28] LABS: Hematocrit 41.6 % (37.0-47.0); Hemoglobin 13.7 g/dL (12.0-15.0); Mean Corpuscular HGB Conc 32.9 g/dl (32-36); Mean Corpuscular Hemoglobin 31.5 pg (26-34); Mean Corpuscular Volume 95.6 fl (80-100); Platelet Count Result 194 k/mm3 (150-375); Red Blood Count 4.35 M/mm3 (4.2-5.4); Red Cell Distribution Width 13.4 % (11.5-14.5); White Blood Count 5.4 K/mm3 (4.5-10.0)
[2022-06-10 09:46] LABS: Alanine Aminotransferase 28 U/L (6-35); Albumin Level 4.4 g/dL (3.5-5.1); Alkaline Phosphatase 94 U/L (38-126); Anion Gap 10 mmol/L (8-16); Aspartate Amino Transferase 32 U/L (14-36); Bilirubin,Total 1.2 mg/dL (0.2-1.3); Blood Urea Nitrogen 15 mg/dL (7-17); Calcium 9.5 mg/dL (8.4-10.2); Carbon Dioxide 30 mmol/L (22-30); Chloride 102 mmol/L (98-107); Cholesterol 150 mg/dL (0-200); Estimated Glomerular Filt Rate > 60; Glucose 105 mg/dL (65-110); HDL Direct 36 mg/dL; Potassium 3.9 mmol/L (3.4-5.0); Sodium 142 mmol/L (137-145); Triglycerides 116 mg/dL (<150)
[2022-06-10 09:57] LABS: LDL Cholesterol Direct 89 mg/dL
[2022-06-10 10:05] LABS: Free T4 Free Thyroxine 1.11 ng/mL (0.78-2.19)
== END 2022-06-10 09:11 | disposition home or self-care (01) ==
PROVIDERS: PCP Family Medicine; Visit Provider Family Medicine
DX: R20.8 Other disturbances of skin sensation (principal); E03.9 Hypothyroidism, unspecified; I10 Essential (primary) hypertension; K76.0 Fatty (change of) liver, not elsewhere classified; Z13.220 Encounter for screening for lipoid disorders
CPT/HCPCS: 36415; 80048; 80061; 80076; 82607; 84439; 84443; 85027

== ENCOUNTER 2022-06-30 09:49 | Outpatient (CLI) | payer OTHER, SELFPAY ==
--- NOTE | 2022-06-30 11:00 | NEURO_ITS ---
ADDENDUM Original report typed and signed under wrong physician Addendum Dictated By: Yamilka Leonard MD Addendum Signed By: <Electronically signed by Yamilka Leonard MD>07/05/22 1333 Addendum Cosigned By: DD/ TD/TT: 06/30/22 Impression: # History of numbness in both feet. # Normal nerve conduction study of lower extremities. # Needle/EMG exam not requested. # Clinical correlation recommended. Nerve Conduction Studies Anti Sensory Summary Table Stim Site NR Peak (ms) P-T Amp (?V) Site1 Site2 Delta-P (ms) Dist (cm) El (m/s) Left Sup Fibular Anti Sensory (Ant Lat Mall) 14 cm 3.8 13.5 14 cm Ant Lat Mall 3.8 16.0 42 Right Sup Fibular Anti Sensory (Ant Lat Mall) 14 cm 3.8 8.2 14 cm Ant Lat Mall 3.8 16.0 42 Left Sural Anti Sensory (Lat Mall) Calf 3.4 3.1 Calf Lat Mall 3.4 16.0 47 Right Sural Anti Sensory (Lat Mall) Calf 3.5 4.5 Calf Lat Mall 3.5 16.0 46 Motor Summary Table Stim Site NR Onset (ms) O-P Amp (mV) Site1 Site2 Delta-0 (ms) Dist (cm) El (m/s) Left Peroneal Motor (Vastus Med) Ankle 4.0 2.5 Popit Ankle 8.3 40.0 48 Popit 12.3 1.3 B Fib Ankle 6.4 30.0 47 B Fib 10.4 1.4 Right Peroneal Motor (Vastus Med) Ankle 4.2 3.4 Popit Ankle 8.0 39.0 49 Popit 12.2 2.6 B Fib Ankle 6.1 30.0 49 B Fib 10.3 3.0 Left Tibial Motor (Abd Redmond Brev) Ankle 4.2 2.5 Knee Ankle 7.4 37.0 50 Knee 11.6 4.0 Right Tibial Motor (Abd Redmond Brev) Ankle 4.1 3.5 Knee Ankle 7.2 35.5 49 Knee 11.3 4.1 F Wave Studies NR F-Lat (ms) L-R F-Lat (ms) Left Peroneal (Mrkrs) (EDB) 49.56 1.43 Right Peroneal (Mrkrs) (EDB) 48.13 1.43 Left Tibial (Mrkrs) (Abd Hallucis) 49.69 0.23 Right Tibial (Mrkrs) (Abd Hallucis) 49.93 0.23 This dictation may have been done utilizing a voice recognition system. Attempts have been made to correct errors. However, there may be uncorrected grammatical, spelling, and recognition errors present. Dictated By: Eric Long MD 06/30/22 1100 Transcribed Date/Time: 06/30/22 1146 Signed By: Eric Long MD 06/30/22 1559 [facility]
== END 2022-06-30 09:50 | disposition home or self-care (01) ==
LOC: ANHNEURO 09:50
PROVIDERS: PCP Family Medicine; Visit Provider Family Medicine
DX: R20.8 Other disturbances of skin sensation (principal)
CPT/HCPCS: 95910

== ENCOUNTER 2023-01-10 12:14 | Emergency (ER) | payer OTHER, SELFPAY ==
--- NOTE | 2023-01-10 12:17 | ED.EYEPROB ---
HPI - Eye Problem General Chief complaint: Eye Problems Stated complaint: bilateral eye irritation Time Seen by Provider: 01/10/23 12:17 Source: patient Mode of arrival: ambulatory Limitations: no limitations History of Present Illness HPI Narrative: Patient is a 62-year-old female who presents with bilateral eye irritation, discharge and pain that started after mowing grass. Patient denies any blurred vision. Patient states after she uses a warm cloth pain lessens. Patient states she feels like there is something in her eye when the discharge is building up. Also complaining of burning with urination and increased frequency along with vaginal itching. Denies any new partners, blood in urine, fever, chills, low back pain. Also denies any congestion, ear pain, cough, sore throat. Related Data Allergies Allergy/AdvReac Type Severity Reaction Status Date / Time levofloxacin AdvReac Intermediate Nausea Verified 01/10/23 12:18 Review of Systems Review of Systems: All systems reviewed & are unremarkable except as noted in HPI and below Constitutional: Constitutional: Denies body ache(s), Denies fever(s), Denies headache(s), Denies malaise and Denies weakness Eyes: Eyes: Denies blurry vision, Reports eye discharge, Reports irritation, Reports itchy eyes, Denies loss of vision and Reports eye pain ENT: Denies otalgia, Denies headache(s), Denies nasal discharge, Denies sinus pain and Denies sore throat Cardiovascular: Cardiovascular: Denies chest pain, Denies irregular heart rhythm and Denies dyspnea Respiratory: Respiratory: Denies dyspnea Gastrointestinal: Gastrointestinal: Denies abdominal pain, Denies diarrhea, Denies nausea and Denies vomiting Genitourinary: Genitourinary: Reports nocturia, Reports genital pruritis and Reports dysuria Musculoskeletal: Musculoskeletal: Denies back pain, Denies myalgias and Denies arthralgias Integumentary/Breasts: Skin/Breast: Denies pruritus and Denies rash Neurologic: Denies headache(s), Denies loss of vision and Denies weakness Psychiatric: Psychiatric: Reports no additional psychiatric complaints Allergic/Immunologic: Allergic/Immunologic: Reports itchy eyes PMFSH Past Medical History Medical History (Updated 01/10/23 @ 13:41 by Sharda Edmondson, [employer]) Abdominal pain Acquired clavicle deformity Adult BMI 36.0-36.9 kg/sq m Anxiety Benign essential hypertension Bilateral carpal tunnel syndrome Bilateral foot pain BMI 35.0-35.9,adult BMI 36.0-36.9,adult BMI 37.0-37.9, adult BMI 37.0-37.9, adult BMI over 35 Burning sensation of feet Carpal tunnel syndrome of left wrist Carpal tunnel syndrome of right wrist Clavicle fracture, sternal end Encounter for screening colonoscopy Foot pain, right Hypothyroidism Left radial head fracture Leg laceration Neuropathy Tensor fascia rut syndrome Ulnar nerve compression Urinary urgency Surgical History Surgical History History of appendectomy History of cholecystectomy Family History Family History Father Carcinoma of colon Mother No problems noted. Sibling No problems noted. 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
[2023-01-10 12:24] VITALS: BP 132/78; PULSE 80; RESP 18; TEMP 36.4; O2SAT 97
== END 2023-01-10 13:51 | disposition home or self-care (01) ==
PROVIDERS: Emergency Provider Nurse Practitioner Family; PCP Family Medicine
DX: N39.0 Urinary tract infection, site not specified (principal); H10.9 Unspecified conjunctivitis; I10 Essential (primary) hypertension; E03.9 Hypothyroidism, unspecified
CPT/HCPCS: 81003; 87086; 99213; G0463

== ENCOUNTER 2023-03-09 17:30 | Outpatient (CLI) | payer OTHER, SELFPAY ==
[2023-03-09 17:58] LABS: Basophils Percent Auto 0.4 % (0.2-1.2); Eosinophils Absolute Auto 0.1 K/mm3 (0-0.3); Eosinophils Percent Auto 1.2 % (0-4.4); Hematocrit 41.7 % (37.0-47.0); Hemoglobin 13.9 g/dL (12.0-15.0); Immature Granulocyte Absolute 0.04 K/mm3 (0.00-0.031); Immature Granulocyte Percent A 0.4 % (0-0.5); Lymphocytes Absolute Auto 2.09 K/mm3 (0.9-3.2); Lymphocytes Percent Auto 18.5 % (18.3-44.2); Mean Corpuscular HGB Conc 33.3 g/dl (32-36); Mean Corpuscular Hemoglobin 31.6 pg (26-34); Mean Corpuscular Volume 94.8 fl (80-100); Mean Platelet Volume 10.2 fl (7.4-10.4); Monocytes Absolute Auto 0.9 K/mm3 (0.1-0.6); Monocytes Percent Auto 8.1 % (2.6-8.5); Neutrophils Absolute Auto 8.1 K/mm3 (1.3-6.7); Neutrophils Percent Auto 71.4 % (45.5-73.1); Platelet Count Result 199 k/mm3 (150-375); Red Cell Distribution Width 13.8 % (11.5-14.5); White Blood Count 11.3 K/mm3 (4.5-10.0)
[2023-03-09 18:11] LABS: Alanine Aminotransferase 26 U/L (6-35); Albumin Level 4.5 g/dL (3.5-5.1); Alkaline Phosphatase 93 U/L (38-126); Anion Gap 7 mmol/L (8-16); Aspartate Amino Transferase 27 U/L (14-36); Bilirubin,Total 1.6 mg/dL (0.2-1.3); Blood Urea Nitrogen 10 mg/dL (7-17); Calcium 9.3 mg/dL (8.4-10.2); Carbon Dioxide 29 mmol/L (22-30); Chloride 100 mmol/L (98-107); Estimated Glomerular Filt Rate > 60; Glucose 112 mg/dL (65-110); Potassium 3.6 mmol/L (3.4-5.0); Sodium 136 mmol/L (137-145)
[2023-03-09 18:39] LABS: Erythrocyte Sedimentation Rate 26 mm/hr (0-20)
[2023-03-09 19:22] LABS: Free T4 Free Thyroxine 1.11 ng/mL (0.78-2.19)
== END 2023-03-09 17:31 | disposition home or self-care (01) ==
LOC: ANHLAB 17:31
PROVIDERS: PCP Family Medicine; Visit Provider Family Medicine
DX: G62.9 Polyneuropathy, unspecified (principal); K76.0 Fatty (change of) liver, not elsewhere classified; M79.669 Pain in unspecified lower leg; R51.9 Headache, unspecified; I10 Essential (primary) hypertension; E03.9 Hypothyroidism, unspecified
CPT/HCPCS: 36415; 80048; 80076; 82607; 84439; 84443; 85025; 85652

== ENCOUNTER 2023-04-03 13:58 | Outpatient (CLI) | payer OTHER, SELFPAY ==
[2023-04-03 18:16] LABS: Lactate Dehydrogenase 179 U/L (120-246)
[2023-04-03 18:51] LABS: Hemoglobin A1C 5.6 % (<5.7)
[2023-04-07 14:06] LABS: Red Blood Cell Folate 531 ng/mL RBC (>280)
== END 2023-04-03 13:59 | disposition home or self-care (01) ==
LOC: ANHLAB 13:59
PROVIDERS: PCP Family Medicine; Visit Provider Family Medicine
DX: D72.829 Elevated white blood cell count, unspecified (principal); R17 Unspecified jaundice; R70.0 Elevated erythrocyte sedimentation rate; E03.9 Hypothyroidism, unspecified; R73.09 Other abnormal glucose
CPT/HCPCS: 36415; 82747; 83036; 83615; 86038

== ENCOUNTER 2023-04-22 11:19 | Outpatient (CLI) | payer OTHER, SELFPAY ==
[2023-04-22 12:07] LABS: Basophils Percent Auto 0.5 % (0.2-1.2); Eosinophils Absolute Auto 0.1 K/mm3 (0-0.3); Eosinophils Percent Auto 2.1 % (0-4.4); Hematocrit 39.3 % (37.0-47.0); Hemoglobin 12.9 g/dL (12.0-15.0); Immature Granulocyte Absolute 0.02 K/mm3 (0.00-0.031); Immature Granulocyte Percent A 0.4 % (0-0.5); Lymphocytes Absolute Auto 1.98 K/mm3 (0.9-3.2); Lymphocytes Percent Auto 34.8 % (18.3-44.2); Mean Corpuscular HGB Conc 32.8 g/dl (32-36); Mean Corpuscular Hemoglobin 31.3 pg (26-34); Mean Corpuscular Volume 95.4 fl (80-100); Mean Platelet Volume 9.9 fl (7.4-10.4); Monocytes Absolute Auto 0.5 K/mm3 (0.1-0.6); Monocytes Percent Auto 7.9 % (2.6-8.5); Neutrophils Absolute Auto 3.1 K/mm3 (1.3-6.7); Neutrophils Percent Auto 54.3 % (45.5-73.1); Platelet Count Result 174 k/mm3 (150-375); Red Blood Count 4.12 M/mm3 (4.2-5.4); Red Cell Distribution Width 13.4 % (11.5-14.5); White Blood Count 5.7 K/mm3 (4.5-10.0)
== END 2023-04-22 11:20 | disposition home or self-care (01) ==
PROVIDERS: PCP Family Medicine; Visit Provider Family Medicine
DX: D72.829 Elevated white blood cell count, unspecified (principal); E53.8 Deficiency of other specified B group vitamins
CPT/HCPCS: 36415; 82607; 85025

== ENCOUNTER 2023-08-21 10:14 | Outpatient (CLI) | payer OTHER, SELFPAY ==
--- NOTE | ~2023-08-21 | XR_ITS ---
XR abdomen/kub 1V 08/21/2023 10:36 Indication: Left flank pain Procedure: KUB Comparison: 07/07/2021 Findings: Bowel gas pattern nonobstructive. Moderate colonic fecal loading. There are cholecystectomy clips. There is moderate-severe multilevel lower thoracic and lumbar spondylosis with dextroscoliosi s. Calcified granuloma projects over the right lower lobe. No definite renal stones. There are pelvic phleboliths. Impression: 1: No acute abdominal abnormality. Reviewed, dictated and finalized at location B. RVISOR SEAMING Impression: 1: No acute abdominal abnormality.
[2023-08-21 11:41] LABS: Appearance Urine Clear (Clear); Bacteria Urine None Seen /hpf; Bilirubin Urine Negative (Negative); Blood Urine Negative (Negative); Color Urine Yellow (Yellow); Glucose Urine UA Negative (Negative); Ketones Urine Negative (Negative); Leukocyte Esterase Ur 1+ LEU/UL (NEGATIVE); Need Manual Microscopic Reviewed; Nitrate Urine Negative (Negative); Non Pathogenic Casts 0-2; Protein Urine Negative (Negative); RBC Urine 0-2 /hpf (0-2); Specific Grav Ur 1.008 (1.001-1.035); Squamous Epithelial Cell Urine None seen /hpf (Few); Urobilinogen Urine 0.2 mg/dL (<2.0); WBC Urine 0-5 /hpf (0-3)
[2023-08-21 11:47] LABS: Add Urine Microscopic? YES
== END 2023-08-21 10:15 | disposition home or self-care (01) ==
PROVIDERS: PCP Family Medicine; Visit Provider Nurse Practitioner Adult Health
DX: R10.9 Unspecified abdominal pain (principal); R31.29 Other microscopic hematuria
CPT/HCPCS: 74018; 81001

== ENCOUNTER 2023-09-28 07:35 | Outpatient (CLI) | payer OTHER, SELFPAY ==
--- NOTE | ~2023-09-28 | CT_ITS ---
CT of the Abdomen and Pelvis: Indication: Abdominal pain Technique: 2.5 mm axial scans were obtained through the abdomen and pelvis following intravenous adm inistration of 100 cc of Omnipaque 350. Dose reduction technique was used on this scan by utilizing a utomated exposure control and iterative reconstruction technique. The dose-length product (DLP) was 9 24.00 mGy-cm. COMPARISON: 07/10/2021 Findings: Scans through the lung bases demonstrate large calcified right basilar granuloma. 2 subcentimeter hypodense right hepatic lobe mass present, shown previously to represent hemangioma ( prior MRI dated 06/23/2015). The spleen, pancreas, gallbladder, adrenals and kidneys are within normal limits. No evidence of aortic aneurysm. No lymphadenopathy. No bowel obstruction or bowel wall thickening. There is no evidence to suggest acute appendicitis. Images through the pelvis were performed. Urinary bladder unremarkable. No pelvic mass seen. No ascit es. Impression: No acute abnormality. Right hepatic lobe lesion, shown previously to represent benign hemangioma. Reviewed, dictated and finalized at location . WRIGHT Impression: No acute abnormality. Right hepatic lobe lesion, shown previously to represent benign hemangioma.
[2023-09-28 07:58] LABS: Estimated Glomerular Filt Rate > 60
== END 2023-09-28 07:36 | disposition home or self-care (01) ==
PROVIDERS: PCP Family Medicine; Visit Provider Nurse Practitioner Adult Health
DX: R10.9 Unspecified abdominal pain (principal)
CPT/HCPCS: 74177; Q9967

== ENCOUNTER 2023-11-09 11:08 | Outpatient (CLI) | payer OTHER, SELFPAY ==
--- NOTE | ~2023-11-09 | XR_ITS ---
EXAMINATION: XR knee LT min 4V DATE: 11/09/2023 11:41 INDICATION: Left knee pain TECHNIQUE: Four views of the left knee were obtained. COMPARISON: 05/21/2015 FINDINGS: Alignment is normal. No fracture or osteochondral lesion. There is mild tricompartmental os teoarthritis characterized by tiny marginal osteophytes. No joint effusion/synovitis. Soft tissues a re unremarkable. IMPRESSION: 1. No acute osseous abnormality. Reviewed, dictated and finalized at location L. REPORTER
--- NOTE | ~2023-11-09 | XR_ITS ---
AP view of the pelvis and AP and lateral views of the left hip Clinical history: Pain Findings: No acute fracture or dislocation is seen. Osseous alignment is anatomic. Bilateral hip and SI joint spaces are preserved. Soft tissues are unremarkable. Impression: No significant abnormality is seen. Reviewed, dictated and finalized at [facility]. OMER ASSOCIATE Impression: No significant abnormality is seen.
== END 2023-11-09 11:09 | disposition home or self-care (01) ==
PROVIDERS: PCP Family Medicine; Visit Provider Family Medicine
DX: M25.552 Pain in left hip (principal); M25.562 Pain in left knee
CPT/HCPCS: 73502; 73564

== ENCOUNTER 2024-02-07 11:00 | Outpatient (RCR) | payer OTHER, SELFPAY ==
--- NOTE | 2023-12-06 17:24 | PTOPEVAL1 ---
Assessment and note entered by Kathia Ribera, PT Assessment Status Evaluation Diagnosis L knee and L hip pain stiffness left hip Subjective Information -Pt reports left knee has had rooster comb previously and this worked the first time. States Ortho told her years ago she was bone on bone. -Current x-rays show arthritis -Pt states sometimes can hardly walk and sometimes when walks at the end of the day -Pt reports also can't sit in the car more than an hour. Has to slowly get her left leg moving. - has a full fleight of steps to get to laundry, has to take one step at a time. Reported Pain Level Pain Score 7,2: Self Report Assessment PT Clinical Summary Pt presents with complaints of left knee and hip pain. Has had x-ray imaging showing mild tri- compartmental left knee arthritis, and no rosa abnormalities of left hip. Demo's multiple alignment deficits of knee including increased genu recurvatum, increased genu valgus angle, laterally deviated patella, and bilat falling arches in foot/ankle complex. Pt demos multiple areas of adhesions throughout LLE as well as increased tone and tenderness in the hip musculature. Demo's decreased ROM left hip as well with severely tight illiotibial band. Pt will greatly benefit from physical therapy to address deficits, and improve function with less pain. Plan of Care Interventions Electrical Stimulation,Hot Pack/Cold Pack,Manual Therapy,Mechanical Traction,Neuro Re-education, Patient/Caregiver Educati,Therapeutic Activities, Therapeutic Exercise,Self-Care/Home Management, Ultrasound PT Services Indicated Yes Treatment Frequency and 1-2x weekly x 6 weeks (or 12 visits) Duration These treatments will address the objective and functional deficits as defined above. The patient will be advanced safely and appropriately in order for the patient to progress towards his/her prior level of function. Additional exercises will be introduced and as well as a comprehensive home exercise program upon discharge, if needed, ?to ensure carryover of functional gains achieved in the clinic. This treatment plan has been reviewed and agreement upon by the patient.
--- NOTE | 2023-12-06 17:30 | OPREHPOC ---
Outpatient Therapy Plan of Care This is a Multidisciplinary Plan of Care that may contain components documented by all disciplines (PT, OT, and ST.) PT Goal 1 Goal Pt will be independent in HEP Pt will verbalize understanding of diagnosis and prognosis Target Visit 8 PT Problem 2 PT Problem #2 Pain PT Goal 1 Goal Pt will report greatest pain level at 6/10 or less to improve ADLs and activities Target Visit 8 PT Goal 2 Goal Pt will report greatest pain level at 3/10 or less to improve ADLs and activities Target Visit 12 PT Problem 3 PT Problem #3 Impaired Flexibility PT Goal 1 Goal Pt will demo only improved hamstring flexibility by 10 degrees LLE Target Visit 8 PT Goal 2 Goal Pt will demo improved illiotibial band flexibility to only mild deficit. Target Visit 12 PT Problem 4 PT Problem #4 Impaired Strength PT Goal 1 Goal Pt will demo strength of 4/5 in all tested planes Target Visit 12
--- NOTE | 2024-01-10 13:42 | PCPTNOTE ---
Patient called & cancelled scheduled appointment this date due to forgetting she had an appointment scheduled and she went on vacation.
--- NOTE | 2024-02-09 11:47 | PTOPDC ---
Assessment and note entered by Kathia Ribera, PT Assessment Status Discharge Diagnosis L knee and L hip pain. Subjective Information Pt states the right knee started letting go yesterday. States RIGHT knee was buckling about 4 times, she catches herself and doesn't go all the way down but it did this a lot yesterday. Pt states the left is killing me today . Reports yesterday went to the store, came home and worked on the car all day, up and down or standing bent over. States I don't use my knees to get up and down I do it like a frog . When patient had pain yesterday kept going cause had to keep working but took a hydrocodone last night to sleep. Didn't take one today yet. Pt states they dull the pain but doesn't make it go away. States 30 will last 3 months. States also her back will start up and this is an ongoing battler as well. This week hasn't been down steps to get to do laundry. Pt got her arch supports but can't wear them in any of her shoes, a different pair of tennis shoes, and tried multiple different styles and are all uncomfortable though she tried to increase wear time slowly. has a pile of inserts at home. Pt is laying on the bed most of the time laying on back takes my breathe away but this last week has been ok laying bed. does her exercises every night. Reports the hip feels a little better there are days it's better. States thought the knee was getting better for a bit but the last couple of days has increased in pain again. Self-perceived improvement: A Three 3 % overall improvement Assessment PT Clinical Summary Pt has attended therapy consistently for her left knee and hip pain. She reports unable to follow through with ankle/foot orthotic instructions, reports her RIGHT knee has been worse lately, LEFT knee continues to be extremely painful with comments of my left knee is killing me today . Pt
== END 2024-02-09 14:25 | disposition home or self-care (01) ==
LOC: ANHHIPT 11:00
PROVIDERS: PCP Family Medicine; Visit Provider Physician Assistant
DX: M25.552 Pain in left hip (principal); M25.562 Pain in left knee
CPT/HCPCS: 97014; 97110; 97140; 97163; 97750; G0283

== ENCOUNTER 2024-02-23 18:11 | Emergency (ER) | payer OTHER, SELFPAY ==
[2024-02-23 18:24] VITALS: BP 115/84; PULSE 115; RESP 16; TEMP 36.1; O2SAT 98
--- NOTE | 2024-02-23 18:48 | ED.GENADULT ---
HPI - General Adult General Chief complaint: Extremity Problem,Nontraumatic Stated complaint: lt leg pain and sob Source: patient and RN notes reviewed Mode of arrival: ambulatory Limitations: no limitations History of Present Illness HPI narrative: 63 y/o female presented for c/o abdominal pain, nausea, and vomiting, and fatigue. Onset today. Rates pain 9/10, described as a sharp pain all over the abdomen and tender with any palpation. Pt unable to eat anything today. LBM yesterday, normal. Denies hematochezia, melena or fever. Denies cp, palpitations, sob, radiating pain, dizziness or sweating. Pt also reports left thigh pain from knee to groin, no redness, swelling or warmth. Onset today. Described as sharp spasm.denies injury. Has not taken anything for pain. Hx left knee pain and 'giving out,' she completed PT last week. Related Data Home Medications Medication Instructions Recorded Confirmed albuterol sulfate 90 mcg/actuation 1 puff inhalation Q4H shortness of 02/23/24 02/23/24 aerosol inhaler breath or wheezing hydrocodone 5 mg-acetaminophen 325 1 tablet PO Q8H pain 02/23/24 02/23/24 mg tablet Allergies Allergy/AdvReac Type Severity Reaction Status Date / Time levofloxacin AdvReac Intermediate Nausea Verified 02/23/24 18:32 Review of Systems Review of Systems: CONSTITUTIONAL: Denies body aches, fever, chills CARDIOVASCULAR: Denies chest pain, palpitations, or edema. RESPIRATORY: Denies cough or dyspnea. GASTROINTESTINAL: Endorses abdominal pain, nausea, vomiting, Denies diarrhea, hematochezia, melena, hematemesis GENITOURINARY: Denies dysuria, hematuria, or CVA tenderness. SKIN: Denies rash, itching, or wounds. MUSCULOSKELETAL: Reports left upper leg pain Denies back pain, joint pain NEUROLOGIC: Denies headache All systems reviewed & are unremarkable except as noted in HPI and below PMFSH Past Medical History Medical History Abdominal pain Acquired clavicle deformity Adult BMI 34.0-34.9 kg/sq m Adult BMI 36.0-36.9 kg/sq m Anxiety Arthralgia of left knee Benign essential hypertension Bilateral carpal tunnel syndrome Bilateral foot pain BMI 35.0-35.9,adult BMI 36.0-36.9,adult BMI 37.0-37.9, adult BMI 37.0-37.9, adult BMI over 35 Burning sensation of feet Candidal intertrigo Carpal tunnel syndrome of left wrist Carpal tunnel syndrome of right wrist Chronic leg pain Clavicle fracture, sternal end Elevated bilirubin Elevated glucose Elevated sed rate Elevated white blood cell count Encounter for screening colonoscopy Foot pain, right Hypothyroidism Left hip pain Left radial head fracture Leg laceration Low vitamin B12 level Nausea Neuropathy Recurrent urinary tract infection Tensor fascia rut syndrome Ulnar nerve compression Unintended weight loss Urge incontinence URI (upper respiratory infection) Urinary urgency Surgical History Surgical History History of appendectomy History of cholecystectomy Family History Family History Father Carcinoma of colon Mother Depression Hypertension Sibling Diverticulitis Other Family history of malignant neoplasm Family history of malignant neoplasm of ovary Social History Social History Smoking status: Never smoker Second hand tobacco smoke exposure: No Alcohol intake: former Substance use: never Substance use type: does not use Do You Feel Safe in your Home?: Yes Lack of Transportation: No Lack of Food: Never True Current Housing: I Have Housing Concerned About Future Housing: No Difficulty Paying Gas/Electric Bills: No Difficulty Paying for Meds: No Currently Unemployed: No Education: High School Diploma/GED Difficulty w/ Childcare or Family Care:
[2024-02-23] MEDS: ONDANSETRON HCL ODT 4 MG TABLET SUBLINGUAL (18:50)
[2024-02-23] MEDS: FAMOTIDINE 20 MG TABLET 40 MG PO (18:50)
== END 2024-02-23 19:10 | disposition left against medical advice (07) ==
LOC: EXPTROY 18:15
PROVIDERS: Emergency Provider Nurse Practitioner Family; PCP Family Medicine
DX: R10.9 Unspecified abdominal pain (principal); I10 Essential (primary) hypertension; E03.9 Hypothyroidism, unspecified; F41.9 Anxiety disorder, unspecified; G62.9 Polyneuropathy, unspecified
CPT/HCPCS: 99211; A9270; G0463

== ENCOUNTER 2024-04-06 13:40 | Outpatient (CLI) | payer OTHER, SELFPAY ==
--- NOTE | ~2024-04-06 | MR_ITS ---
EXAMINATION: MR knee LT wo con DATE: 04/06/2024 14:15 INDICATION: M25.562 - Pain in left knee TECHNIQUE: Magnetic resonance imaging (MRI) of the left knee was performed without intravenous contra st. Sequences included axial PD-weighted FS FSE, coronal PD-weighted FSE and PD-weighted FS FSE, sagi ttal PD-weighted FSE, and sagittal T2-weighted FS FSE. COMPARISON: 11/09/2023 FINDINGS: Medial compartment: Apical tear of the posterior horn. Moderate diffuse cartilage thinning. Mild osteophytosis. Lateral compartment: Meniscus intact. Mild diffuse cartilage thinning. Mild osteophytosis. Patellofemoral compartment: Full-thickness cartilage loss over the medial facet. Mild osteophytosis. Retinacula intact. Ligaments and tendons: The ACL, PCL, MCL, and LCL are intact. Remaining flexor and extensor tendons are intact. Fluid: No significant fluid collection. Osseous/other: No suspicious focal or diffuse marrow signal. IMPRESSION: Reviewed, dictated and finalized at location K. IMPRESSION:
== END 2024-04-06 13:41 | disposition home or self-care (01) ==
PROVIDERS: PCP Family Medicine; Visit Provider Nurse Practitioner Adult Health
DX: M25.562 Pain in left knee (principal)
CPT/HCPCS: 73721

== ENCOUNTER 2024-06-13 11:47 | Outpatient (CLI) | payer OTHER, SELFPAY ==
--- NOTE | ~2024-06-13 | XR_ITS ---
XR sacrum coccyx min 2V Ordering provider: Ciro Doyle MD History: . NON TRAUMA LBP . Comparison: None. FINDINGS: BONES: Degenerative changes of the lower lumbar area. No No acute fracture or dislocation. JOINTS: The sacroiliac joint spaces shows minimal irregularity bilaterally more on the left side whic h may indicate sacroiliitis. SOFT TISSUES: Normal. IMPRESSION: No acute osseous abnormality sacrum. Bilateral sacroiliacs. Degenerative spine Reviewed, dictated and finalized at location A.
--- NOTE | ~2024-06-13 | XR_ITS ---
3 VIEWS LUMBAR SPINE Ordering provider: Ciro Doyle MD History: . NON TRAUMA LBP . Comparison: July 12, 2016 FINDINGS: VERTEBRAL BODIES:Loss of volume of T12 and T11 which may be acute or chronic. Lucency in the mid port ion of the body of L1 is also noted which may indicate a fracture. Clinical correlation and if warran maren MRI is advised. No subluxation. Degenerative changes of the spine. DISK SPACES: Narrowing of all the disc spaces except L5-S1. Facet joint disease at the level of L3-L4 , L4-L5 and L5-S1. SOFT TISSUES: Normal. IMPRESSION: Acute or chronic compression fractures of T11 and T12. Lucency in the mid body of L1 which may indica te a fracture. MRI is advised. Multilevel degenerative disc disease. Reviewed, dictated and finalized at location A. IMPRESSION: Acute or chronic compression fractures of T11 and T12. Lucency in the mid body of L1 which may indicate a fracture. MRI is advised. Multilevel degenerative disc disease.
== END 2024-06-13 11:48 | disposition home or self-care (01) ==
LOC: ANHIMG 11:48
PROVIDERS: PCP Family Medicine; Visit Provider Family Medicine
DX: M53.3 Sacrococcygeal disorders, not elsewhere classified (principal); R20.0 Anesthesia of skin; S22.089A Unspecified fracture of T11-T12 vertebra, initial encounter for closed fracture; X58.XXXA Exposure to other specified factors, initial encounter
CPT/HCPCS: 72120; 72220

== ENCOUNTER 2024-06-22 11:07 | Outpatient (CLI) | payer OTHER, SELFPAY ==
--- NOTE | ~2024-06-22 | MM_ITS ---
EXAMINATION: MM screening una BI w maria alejandra HISTORY: Screening TECHNIQUE: Craniocaudal and mediolateral oblique 3-D tomosynthesis images were obtained and synthetic 2-D images were generated. CAD analysis was submitted and interpreted. COMPARISON: Comparison to multiple prior studies sequentially, with oldest reviewed study dated 02/2015. BREAST PARENCHYMAL COMPOSITION: Not dense: There are scattered areas of fibroglandular density. FINDINGS: There has been progression of clustered calcifications in the upper outer quadrant of the r ight breast, posterior third. The left breast is stable without evidence for malignancy. IMPRESSION: 1. Progression of clustered punctate indeterminate calcifications upper outer quadrant of the right b reast. 2. Magnification views are recommended. BI-RADS Category 0: Incomplete: Needs additional imaging evaluation. Reviewed, dictated and finalized at location B. IMPRESSION: 1. Progression of clustered punctate indeterminate calcifications upper outer q uadrant of the right breast. 2. Magnification views are recommended. BI-RADS Category 0: Incomplete: Needs additional imaging evaluation.
== END 2024-06-22 11:08 | disposition home or self-care (01) ==
LOC: ANHIMG 11:34
PROVIDERS: PCP Family Medicine; Visit Provider Nurse Practitioner Obstetrics & Gynecology
DX: R92.8 Other abnormal and inconclusive findings on diagnostic imaging of breast (principal); Z12.31 Encounter for screening mammogram for malignant neoplasm of breast
CPT/HCPCS: 77063; 77067

== ENCOUNTER 2024-06-26 12:30 | Outpatient (RCR) | payer OTHER, SELFPAY ==
--- NOTE | 2024-06-21 09:35 | PTOPEVAL1 ---
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 Takin Hydrocodone for pain. Usually one in the morning is good. Last month had to do 2 a day but is trying to get back to one. Reported Pain Level Pain Score 5: Self Report Assessment PT Clinical Summary Pt presents with history of chronic back pain, and recent increase in this with radicular symptoms to LLE thigh. Pt had an MRI in 2016 at the time had multi-level stenosis, disc bulges, and other arthritic changes. Evaluation today suggests leg length discrepancy of L>R, as well as poor thoracic and thoracolumbar movement, decreased bilat hip joint motion, difficulty with functional movement with a 5x sit to stand test score of 32 seconds, gait abnormalities, and significant weakness in the lumbopelvic core. Today she was educated on these findings, that the chronicity of the issue is likely to take time to improve with therapy, and was provided initial instructions for heel lift in the right shoe as well as cryotherapy instructions. Pt will greatly benefit from physical therapy to address these deficits, improve pain, and thus improve functional independence and quality of life. Plan of Care Interventions Electrical Stimulation,Gait Training,Hot Pack/Cold Pack,Manual Therapy,Mechanical Traction,Neuro Re- education,Patient/Caregiver Educati,Therapeutic Activities,Therapeutic Exercise,Self-Care/Home Management,Ultrasound PT Services Indicated Yes Treatment Frequency and 1-2x weekly x 20 visits Duration These treatments will address the objective and functional deficits as defined above. The patient will be advanced safely and appropriately in order for the patient to progress towards his/her prior level of function. Additional exercises will be introduced and as well as a comprehensive home exercise program upon discharge, if needed, ?to ensure carryover of functional gains achieved in the clinic. This treatment plan has been reviewed and agreement upon by the patient.
--- NOTE | 2024-06-21 09:35 | OPREHPOC ---
Outpatient Therapy Plan of Care This is a Multidisciplinary Plan of Care that may contain components documented by all disciplines (PT, OT, and ST.) PT Goal 1 Goal / Goal Update Pt will be independent in HEP Pt will verbalize understanding of diagnosis and prognosis Target Visit 10 PT Problem 2 PT Problem #2 Pain PT Goal 1 Goal / Goal Update Pt will report greatest pain level at 5/10 or less to improve ADLs and activities Target Visit 10 PT Goal 2 Goal / Goal Update Pt will report lowest pain rating at 0/10 to show improvement in overall discomfort Target Visit 20 PT Problem 3 PT Problem #3 Impaired Flexibility PT Goal 1 Goal / Goal Update Pt will demo right quads length equal to left quads for improved pelvic alignment and reduction of pain Target Visit 10 PT Problem 4 PT Problem #4 Impaired Strength PT Goal 1 Goal / Goal Update Pt will demo 3+/5 wu gluteus medius strength for improved lumbopelvic stability Target Visit 10 PT Goal 2 Goal / Goal Update Pt will demo 4/5 in gluteus medius and tim, and 3+/5 TRAM for lumbopelvic stability Target Visit 10
--- NOTE | 2024-07-12 13:00 | PCPTNOTE ---
When patient was late for appt, clerical called to ask if patient would be attending. Pt stated she knew she had an appointment that day but didn't want to come. States she is getting knee surgery and isn't sure if she should continue therapy at this time. States she will call her doctor and call back to let us know.
--- NOTE | 2024-07-15 13:46 | PTOPDC ---
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 Takin Hydrocodone for pain. Usually one in the morning is good. Last month had to do 2 a day but is trying to get back to one. Assessment PT Clinical Summary (07/15/2024) Pt attended evaluation, and [facility] two immediate appointments. When spoke to patient she stated she would be undergoing knee surgery on 07/26/2024 and opted not to participate in therapy until after this point. Pt was educated she may return to therapy for her knee post-op and also address sciatic/back pain with a new order if she wishes. Thus patient is being discharged per request. Plan of Care PT Services Indicated No
== END 2024-07-15 13:53 | disposition home or self-care (01) ==
LOC: ANHHIPT 12:30
PROVIDERS: PCP Family Medicine; Visit Provider Family Medicine
DX: M25.552 Pain in left hip (principal); M53.3 Sacrococcygeal disorders, not elsewhere classified; R20.0 Anesthesia of skin
CPT/HCPCS: 97014; 97110; 97140; 97162; 97530; G0283

== ENCOUNTER 2024-07-04 12:31 | Outpatient (CLI) | payer OTHER, SELFPAY ==
--- NOTE | ~2024-07-04 | XR_ITS ---
Left wrist Technique: PA, oblique, lateral, and ulnar deviation views were obtained. Clinical History: Pain Findings: No acute fracture or dislocation is seen. Osseous alignment is anatomic. Joint spaces are p reserved. Soft tissues are unremarkable. Impression: Unremarkable left wrist radiographs. Reviewed, dictated and finalized at location . Impression: Unremarkable left wrist radiographs.
--- NOTE | ~2024-07-04 | XR_ITS ---
Right wrist Technique: PA, oblique, lateral, and ulnar deviation views were obtained. Clinical History: Pain Findings: No acute fracture or dislocation is seen. Osseous alignment is anatomic. Joint spaces are p reserved. Soft tissues are unremarkable. Impression: Unremarkable right wrist radiographs. Reviewed, dictated and finalized at location . Impression: Unremarkable right wrist radiographs.
== END 2024-07-04 12:32 | disposition home or self-care (01) ==
LOC: ANHIMG 12:33
PROVIDERS: PCP Family Medicine; Visit Provider Family Medicine
DX: M25.531 Pain in right wrist (principal); M25.532 Pain in left wrist
CPT/HCPCS: 73110

== ENCOUNTER 2024-07-26 02:00 | Day surgery (SDC) | payer OTHER, SELFPAY ==
[2024-07-17 15:04] VITALS: BMI 33.7
--- NOTE | 2024-07-17 15:05 | PC.NURSE ---
Report to the Outpatient Waiting Room, entrance under the green pavilion located off [facility], at time _0700_ on date _[id number]_. Planned Procedure Time: _0900_.? Time changes happen often and if your time is changed the preop area will call you the afternoon before. - You and your visitor will be asked to self-screen and do not enter if you have any COVID symptoms. Please call surgeon if you need to reschedule. - A mask is optional within the hospital at this time. Patients may have clear liquids (water, carbonated beverages, clear teas, apple juice) until 3 hours prior to surgery with a maximum of 20 ounces. - No food from midnight until time of surgery and no smoking Take only the following medications with a SIP of water on the morning of surgery: __Buspirone, Duloxetine, and if needed may use Flonase and or Hydrocodone.____ DO NOT STOP ANY OF YOUR OTHER PRESCRIPTION MEDICATIONS PRIOR TO SURGERY EXCEPT THE FOLLOWING Medications to discontinue per physician ___None___ Please no make-up, nail macedonian, hairspray, perfume, deodorant, or body powder the day of surgery.? No jewelry (including any body piercings) or valuables the day of surgery, leave them at home.? Please take a shower or bath the night before, or the morning of, surgery with an antibacterial soap.? Wear comfortable, loose fitting clothing.? - Jewelry must be removed prior to entering the operating room.? Rings and piercings that are not removed may be cut off. - The hospital will not accept responsibility for valuables.? - Please leave all valuables, including medications, at home the day of surgery. If you are going home after surgery, a licensed telephone directory distributor driver must drive you home.? - NO public transportation without another adult if you receive anesthesia. - We recommend that an adult stay with you for 24 hours following discharge. - We also recommend that you do not drive, make important decision, drink alcoholic beverages, or take any drugs that were not prescribed by your health care provider for at least 24 hours after your discharge time. Follow any additional instructions given to you from your surgeon. Telephone instructions given to _Melanie_and asked if any additional questions and then verbalized understanding. Patient advised to call surgeon office or pre surgery nurse liaison [phone] if any additional questions.
[2024-07-26] VITALS (8 sets, daily range): BP systolic 82–141; BP diastolic 30–91; PULSE 72–94; RESP 10–20; TEMP 36.1–36.5; O2SAT 94–99; BMI 34.2
[2024-07-26] MEDS: ACETAMINOPHEN 500 MG TABLET 1000 MG PO (08:00)
[2024-07-26] MEDS: CELECOXIB 200 MG CAPSULE PO (08:00)
[2024-07-26] MEDS: LACTATED RINGERS 1,000 ML 30 ML IV CONT ×2 (08:00→14:41)
--- NOTE | 2024-07-26 09:20 | P.PNAN_ITS ---
Anes - Initial Pre Proc Eval Procedure: Operation Date: 07/26/24 09:00 Proposed Procedures p Left Knee Arthroscopy - Thierno Kwan MD Date/Time: 07/26/24 09:20 Surgeon: Thierno Kwan MD Pre Op Diagnosis: Lt Knee Medial Meniscus tear Patient Data Age: 63 Gender: F Height: 1.65 m Weight: 91.8 kg Allergies Allergy/AdvReac Type Severity Reaction Status Date / Time levofloxacin AdvReac Intermediate Nausea Verified 07/17/24 14:57 Home Medications Medication Instructions Recorded Confirmed Type buspirone 10 mg tablet 10 mg PO BID #180 tabs 07/28/23 07/17/24 Rx fluticasone propionate 50 1 spray intranasal DAILY #16 grams 10/09/23 07/17/24 Rx mcg/actuation nasal spray,suspension (Flonase Allergy Relief) gabapentin 300 mg capsule 300 mg PO QHS #90 caps 11/04/23 07/17/24 Rx albuterol sulfate 90 mcg/actuation 1 puff inhalation Q4H shortness of 02/23/24 07/17/24 History aerosol inhaler breath or wheezing duloxetine 30 mg capsule,delayed 30 mg PO DAILY #90 caps 03/12/24 07/17/24 Rx release buspirone 15 mg tablet 15 mg PO BID #60 tabs 05/12/24 07/17/24 Rx lisinopril 20 mg tablet 20 mg PO BID #180 tabs 05/12/24 07/17/24 Rx trazodone 50 mg tablet See Rx Instructions .Route 06/05/24 07/17/24 Rx .COMPLEX #90 tabs hydrocodone 5 mg-acetaminophen 325 1 tablet PO Q8H PRN pain #45 tabs 06/13/24 07/17/24 Rx mg tablet mirabegron 25 mg tablet,extended 50 mg PO DAILY #60 tabs 06/19/24 07/17/24 Rx release 24 hr (Myrbetriq) nystatin 100,000 unit/gram topical See Rx Instructions .Route 07/10/24 07/17/24 Rx powder .COMPLEX #15 grams chlorhexidine gluconate 4 % 1 applic topical ONCE #237 mL 07/19/24 Rx topical liquid (Hibiclens) Patient hx anesthesia problems: none Family hx anesthesia problems: none Results Review: All pre-operative results and documents have been reviewed as part of the pre- operative evaluation. [facility] Past Medical History Medical History Abdominal pain Acquired clavicle deformity Anxiety Arthralgia of left knee Benign essential hypertension Bilateral carpal tunnel syndrome Bilateral foot pain BMI over 35 Burning sensation of feet Candidal intertrigo Carpal tunnel syndrome of left wrist Carpal tunnel syndrome of right wrist Chronic leg pain Clavicle fracture, sternal end Degenerative joint disease of knee Edema of right forearm Elevated bilirubin Elevated glucose Elevated sed rate Elevated white blood cell count Encounter for screening colonoscopy Foot pain, right Hypothyroidism Left hip pain Left knee pain Left radial head fracture Leg laceration Low vitamin B12 level Medial meniscus tear Melanonychia Nasal congestion Nausea Neuropathy Recurrent urinary tract infection Right knee pain Sleep apnea Tensor fascia rut syndrome Ulnar nerve compression Unintended weight loss Urge incontinence URI (upper respiratory infection) Urinary urgency Wrist weakness Surgical History Surgical History H/O tubal ligation History of ankle surgery History of appendectomy History of cholecystectomy Family History Family History Father Carcinoma of colon Mother Depression Hypertension Sibling Diverticulitis Other Family history of malignant neoplasm Family history of malignant neoplasm of ovary Social History Social History Smoking status: Never smoker Second hand tobacco smoke exposure: No Alcohol intake: former Substance use: never Substance use type: does not use Do You Feel Safe in your Home?: Yes Lack of Transportation: No Lack of Food: Never True Current Housing: I Have Housing Concerned About Future Housing: No Difficulty Paying Gas/Electric Bills: No Difficulty Paying for Meds: No Currently Unemployed: No Education: High School Diploma/GED Difficulty w/ Childcare or Family Care: No Living arrangements: with family Occupation/Education: retired 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 Gender identity (if verbalized by the patient): Female Sexual Orientation (if Verbalized by the Patient): Straight or Heterosexual Spiritual care concerns: No Agree to blood products: Yes Anes - Eval Final PreProcedure Day of Procedure 07/26/24 09:20 Patient weight: obese Heart: regular rate and rhythm Lungs: clear to auscultation Airway: Mallampati scale class III Neurological: alert and oriented Last oral intake: >/= 8 hours ASA classification: III Emergent: no Anesthetic plan: proceed Anesthesia type and monitoring: general LMA and standard monitoring Results Review: All pre-operative results and documents have been reviewed as part of the pre- operative evaluation. Informed Consent: The patient's anesthetic plan and its attendant risks and benefits were discussed with the patient/family/POA. Questions were solicited and answers provided to the satisfaction of the patient/family/POA.
--- NOTE | 2024-07-26 10:11 | WPDHPUPDATE1 ---
History and Physical Update Update Date/Time: 07/26/24 10:11 History and Physical has been reviewed, including an updated exam of the patient. There are NO changes in the patient's condition. Risks, benefits, and alternatives have been discussed and questions answered. Patient agrees to proceed with procedure.
[2024-07-26] MEDS: ceFAZolin 2 GM/D5W 50 ML 2 GM/50 ML BAG IVPB (13:28)
[2024-07-26] MEDS: BUPivacaine HCL 0.5% 10 ML AMP 30 ML INFILTRATE (13:48)
--- NOTE | 2024-07-26 14:32 | W.PM.PROC2 ---
Procedure Note - Detailed Date of Procedure 07/26/24 Pre-op Diagnosis Lt Knee Medial Meniscus tear Post-op Diagnosis Same Procedure Performed LEFT KNEE SCOPE Surgeon Thierno Kwan MD Anesthesia General Description of Procedure PATIENT WAS TAKEN TO THE OR. LEFT LEG WAS PREPPED AND DRAPED STERILE. TROCARS WERE PLACED IN THE USUAL FASHION. CAMERA WAS INTRODUCED. THERE WAS CHONDROMALACIA TO THE PATELLA FEMORAL JOINT. THERE WAS SYNOVITIS IN ALL COMPARTMENTS. THE MEDIAL COMPARTMENT SHOWED CHONDROMALACIA TO THE MEDIAL FEMORAL CONDYLE. A SHAVER WAS USED TO PREFORM A CHONDROPLASTY. THERE WAS A COMPLEX MEDIAL MENISCUS TEAR. THE TEAR WAS RESECTED WITH A BITER AND A SHAVER DOWN TO A SMOOTH BASE. THE ACL WAS INTACT. THE LATERAL MENISCUS WAS NOT TORN. THE LATERAL COMPARTMENT HAD MINIMAL CHONDROMALACIA. A SYNOVECTOMY WAS PREFORMED. THE PATELLO FEMORAL JOINT UNDERWENT CHONDROPLASTY. THERE WAS CHONDROMALACIA IN PART OF THE TROCHLEA AND PART OF THE PATELLA. SYNOVECTOMY WAS PREFORMED IN THE SUPERIOR MEDIAL COMPARTMENT. THE WOUNDS WERE APPROXIMATED WITH 4.0 NYLON. STERILE DRESSING WAS APPLIED. PATIENT WAS EXTUBATED AND SENT TO RECOVERY ROOM IN STABLE CONDITION. Estimated Blood Loss 5 Complications No immediate complications Condition Stable Disposition PACU
[2024-07-26] MEDS: oxyCODONE HCL (*CRX) 5 MG TAB IR PO (15:46)
== END 2024-07-26 16:42 | disposition home or self-care (01) ==
PROVIDERS: PCP Family Medicine; Visit Provider Orthopaedic Surgery
PROC: (CPT 29870; principal; 2024-07-26 09:00)
DX: S83.232A Complex tear of medial meniscus, current injury, left knee, initial encounter (principal); M94.262 Chondromalacia, left knee; M65.862 Other synovitis and tenosynovitis, left lower leg; M17.12 Unilateral primary osteoarthritis, left knee; I10 Essential (primary) hypertension; E03.9 Hypothyroidism, unspecified; E53.8 Deficiency of other specified B group vitamins; G47.30 Sleep apnea, unspecified; N39.41 Urge incontinence; F41.9 Anxiety disorder, unspecified; G56.03 Carpal tunnel syndrome, bilateral upper limbs; M95.8 Other specified acquired deformities of musculoskeletal system; G89.29 Other chronic pain; M79.606 Pain in leg, unspecified; E66.9 Obesity, unspecified; X58.XXXA Exposure to other specified factors, initial encounter; Z68.34 Body mass index [BMI] 34.0-34.9, adult; Z79.51 Long term (current) use of inhaled steroids; Z79.891 Long term (current) use of opiate analgesic; Z98.890 Other specified postprocedural states; Z90.49 Acquired absence of other specified parts of digestive tract; Z98.51 Tubal ligation status; Z80.0 Family history of malignant neoplasm of digestive organs; Z80.41 Family history of malignant neoplasm of ovary
CPT/HCPCS: 29881; 29876; A9270; J0690; J2003; J2250; J2405; J2704; J3010; J7120

== ENCOUNTER 2024-08-12 10:31 | Outpatient (CLI) | payer OTHER, SELFPAY ==
--- NOTE | ~2024-08-12 | MM_ITS ---
EXAMINATION: MM diagnostic una RT w maria alejandra HISTORY: Right breast calcification TECHNIQUE: Additional 3-D tomosynthesis images of the right breast were performed and synthetic 2-D i mages were generated. CAD analysis was submitted and interpreted. COMPARISON: Comparison to multiple prior studies sequentially, with oldest reviewed study dated 02/2015. BREAST PARENCHYMAL COMPOSITION: Not dense: There are scattered areas of fibroglandular density. FINDINGS: There is a cluster of pleomorphic calcifications in the upper outer quadrant of the right b reast which are not specifically benign. No suspicious masses or architectural distortion. IMPRESSION: 1. Clustered pleomorphic calcifications upper outer quadrant of the right breast, posterior third. 2. Stereotactic right breast biopsy recommended. BI-RADS category 4, suspicious findings. Reviewed, dictated and finalized at location B. [employer] IMPRESSION: 1. Clustered pleomorphic calcifications upper outer quadrant of the right breas t, posterior third. 2. Stereotactic right breast biopsy recommended. BI-RADS category 4, suspicious findings.
== END 2024-08-12 10:32 | disposition home or self-care (01) ==
LOC: ANHIMG 10:32
PROVIDERS: PCP Family Medicine; Visit Provider Nurse Practitioner Obstetrics & Gynecology
DX: R92.1 Mammographic calcification found on diagnostic imaging of breast (principal)
CPT/HCPCS: 77061; 77065; G0279

== ENCOUNTER 2024-08-23 10:05 | Outpatient (CLI) | payer MEDICARE, MEDICAID, SELFPAY ==
--- NOTE | ~2024-08-23 | MR_ITS ---
MRI of the lumbar spine Clinical History: Fracture Technique: Axial T2-weighted images, and sagittal T1-weighted, T2-weighted, and T2 fat-sat images wer e acquired. Findings: No acute fracture or subluxation evident. There is extensive marrow edema in the L1 and L2 vertebral bodies, compatible with reactive marrow changes due to underlying advanced degenerative dis c narrowing at L1-L2. There are additional more mild reactive marrow changes about the L4-L5 disc spa ce. At L1-L2, there is severe degenerative disc narrowing. There is a central disc extrusion with large a nnular fissure or cystic change, resulting in focal severe thecal sac compression at this level. Ther e is moderate facet arthropathy. There is severe left neural foraminal narrowing, and moderate to sev ere right neural foraminal narrowing. At L2-L3, there is extensive disc bulge especially the right foraminal to right paracentral and centr al regions, with advanced facet arthropathy. There is focal severe spinal canal stenosis/thecal sac c ompression. There is severe left neural foraminal narrowing, and mild right neural foraminal narrowin g. At L3-L4, there is diffuse disc bulge with severe facet arthropathy. There is moderate central canal stenosis/thecal sac compression, with focally prominent posterior epidural fat. There is moderate to advanced bilateral neural foraminal narrowing. At L4-L5, there is severe degenerative disc narrowing. There is diffuse disc bulge with moderate to a dvanced facet arthropathy. No unique central canal stenosis. There is severe right advanced bilateral neural foraminal narrowing, right worse than left. At L5-S1, there is no significant disc bulge or herniation. There is severe facet arthropathy. No hoda tral canal stenosis. There is minimal bilateral neural foraminal narrowing. Paravertebral soft tissues are unremarkable. Impression: No fracture. Extensive reactive marrow edema about the L1-L2 disc space due to underlying severe dege nerative disc narrowing. Severe degenerative spondylosis, as detailed above. Intra-articular, there is severe thecal sac compr ession at L1-L2 and L2-L3. There is central disc extrusion at L1-L2. Multilevel neural foraminal narrowing, as detailed above. Moderate thecal sac compression/canal stenosis at L3-L4. Reviewed, dictated and finalized at location M. HT OPERATIONS INSPECTOR Impression: No fracture. Extensive reactive marrow edema about the L1-L2 disc space due to underlying severe degenerative disc narrowing. Severe degenerative spondylosis, as detailed above. Intra-articular, there is s evere thecal sac compression at L1-L2 and L2-L3. There is central disc extrusio n at L1-L2. Multilevel neural foraminal narrowing, as detailed above. Moderate thecal sac compression/canal stenosis at L3-L4.
--- NOTE | ~2024-08-23 | MR_ITS ---
EXAMINATION: MR wrist RT wo con DATE: 08/23/2024 10:54 INDICATION: Other symptoms and signs involving the musculoskeletal system. Right wrist pain. TECHNIQUE: Magnetic resonance imaging (MRI) of the wrist was performed without intravenous contrast. Sequences performed include coronal T1-weighted FSE, coronal PD-weighted FS FSE, axial PD-weighted FS FSE, axial PD-weighted FSE, sagittal PD-weighted FSE, and sagittal PD-weighted FS FSE. COMPARISON: Right wrist radiographs 07/04/2024 FINDINGS: Intrinsic ligaments: There is a partial tear of scapholunate ligament. Lunotriquetral ligament is normal. Triangular fibrocartilage complex (TFCC): There is a full-thickness tear of triangular fibrocartilage. Extensor wrist: There is magic angle artifact involving some of the tendons. There is a partial tear of the extensor carpi radialis longus tendon characterized by enlargement and increased signal intensity. There is mi ld tenosynovitis in the second and third extensor compartments. Flexor wrist: There is magic angle artifact involving some of the tendons. Median nerve is normal. Guyon's canal: The ulnar nerve is normal. Bones/other: Bone alignment is normal. There is edema-like marrow signal intensity in radial styloid, likely stres s reaction. No fracture. There is mild osteoarthritis of triscaphe joint and first carpometacarpal sixto int. IMPRESSION: 1. Partial tear of the extensor carpi radialis longus tendon. 2. Mild tenosynovitis in the second and third extensor compartments. 3. Partial tear of scapholunate ligament. 4. Full-thickness tear of triangular fibrocartilage. 5. Mild polyarticular osteoarthritis. Reviewed, dictated and finalized at location A. M SHOVELMAN
== END 2024-08-23 10:06 | disposition home or self-care (01) ==
PROVIDERS: PCP Family Medicine; Visit Provider Family Medicine
DX: S32.019D Unspecified fracture of first lumbar vertebra, subsequent encounter for fracture with routine healing (principal); R29.898 Other symptoms and signs involving the musculoskeletal system; R60.0 Localized edema; X58.XXXD Exposure to other specified factors, subsequent encounter
CPT/HCPCS: 72148; 73221

== ENCOUNTER 2024-12-13 00:54 | Day surgery (SDC) | payer MEDICARE, SELFPAY ==
[2024-12-03 11:02] VITALS: BMI 33.9
--- OUTSIDE RECORDS SUMMARY | 2024-12-13 00:58 | XMS_ITS | Clinical Summary ---
Author Organization [facility] [employer] Address [address] [place] [address] Care Team Providers Care Asic Engineer Name Role Phone Ciro Doyle MD Primary Care Provider [phone] Source Comments [facility] [employer],non-owned Affiliates and Associated Physician Practices is amultiple site organization consisting of ambulatory clinics and hospital sitesin [place], [place], [place] and [place]. This disclosure is being madepursuant to the Care Everywhere program and may not contain all information available regarding this patient. Last updated 18.[facility] [employer] Allergies Active Allergy Reactions Criticality Noted Date Comments Levofloxacin Other 12/04/2024 Stomach issues Medications * Be aware that medications may not be up to date on this document. Alwaysverify current medications with the patient. Medication Sig Dispensed Refills Start Date End Date Status busPIRone (Buspar) 10 MG tablet TAKE 1 TABLET BY MOUTH TWICE A DAY ALONG WITH 15MG TABLET 09/24/2024 Active DULoxetine (Cymbalta) 30 MG capsule Take 1 (one) capsule by mouth once daily 09/24/2024 Active gabapentin (Neurontin) 300 MG capsule Take 1 (one) capsule by mouth at bedtime 09/24/2024 Active lisinopril (Prinivil; Zestril) 20 MG tablet Take 1 (one) tablet by mouth 2 times daily 08/09/2024 Active traZODone (Desyrel) 50 MG tablet Take 1 (one) tablet by mouth 09/24/2024 Active HYDROcodone-aceta minophen (Covel) 5-325 MG tablet Take 1 (one) tablet by mouth every 8 hours as needed For pain. 11/15/2024 Active metoprolol succinate XL 24hr (Toprol XL) 50 MG tablet 12/02/2024 Active busPIRone (Buspar) 15 MG tablet Take 1 (one) tablet by mouth 2 times daily Active oxyBUTYnin (Ditropan) 5 MG tablet Take 1 (one) tablet by mouth 2 times daily 60 tablet 12/04/2024 Active busPIRone (Buspar) 15 MG tablet Take 1 (one) tablet by mouth 2 times daily 09/24/2024 12/04/2024 Discontinued (List Clean-Up) Active Problems No known active problems Encounters Date Type Department Care Team Description 12/04/2024 3:00 PM CDT Office Visit [facility] [address] [facility], [facility] [address] [place] [phone] Jalyn Collins Che, MD Urge incontinence (Primary Dx); Stress incontinence; Rectocele; Vaginal atrophy; Rash; Nocturia; Frequency of micturition 12/04/2024 Travel 11/20/2024 10:50 AM SERVICE SUPERINTENDENT Office Visit [facility] - Dermatology [address] [facility], [place] [phone] MD Melanonychia (Primary Dx) 11/20/2024 Travel 10/28/2024 Telephone [facility] - Surgery [address] [facility], [address] [place] [address] Betsey Aranda MD Results 10/28/[address] [facility] - Ultrasound [address] [facility] [address] [place] [address] Lisa Perkins RN High Risk Follow Up (Evaluate HI Risk status) 10/24/2024 12:22 PM SERVICE SUPERINTENDENT - 10/24/2024 11:59 PM SERVICE SUPERINTENDENT Hospital Encounter [facility] [address] [facility] [address] [place] [address] Betsey Aranda MD Discharge Disposition: Home or Self Care 10/24/2024 11:15 AM SERVICE SUPERINTENDENT Office Visit [facility] - Surgery [address] [facility], [address] [place] [address] Betsey Aranda MD Abnormal mammogram (Primary Dx) 10/24/2024 Travel from Last 3 Months Family History Medical History Relation Name Comments Cancer - Colon Father Cancer - Ovarian Paternal Aunt Relation Name Status Comments Father Paternal Aunt Social History Tobacco Use Types Packs/Day Years Used Date Smoking Tobacco: Never Smokeless Tobacco: Never Tobacco Cessation:Counseling Given: Not Answered Alcohol Use Standard Drinks/Week Comments Not Currently 0 (1 standard drink = 0.6 oz pur e alcohol) Sex and Gender Information Value Date Recorded Sex Assigned at Not on file Gender Identity Not on file Sexual Orientation Not on file Last Filed Vital Signs Vital Sign Reading Time Taken Comments Blood Pressure 134/82 12/04/2024 2:32 PM CDT Pulse 88 10/24/2024 11:40 AM SERVICE SUPERINTENDENT Temperature 36.2 C (97.1 F) 10/24/2024 11:40 AM SERVICE SUPERINTENDENT Respiratory Rate - - Oxygen Saturation - - Inhaled Oxygen Concentration - - Weight 94.3 kg (208 lb) 12/04/2024 2:32 PM CDT Height 158.8 cm (5' 2.5 ) 12/04/2024 2:32 PM CDT Body Mass Index 37.44 12/04/2024 2:32 PM CDT Plan of Treatment Upcoming Encounters Date Type Department Care Team (Late st Contact Info) Description 01/22/2025 2:20 PM CDT Office Visit [facility] - Dermatology [address] [place] [address], [place] [phone] MD [address] [place] [address] [address] [place] [phone] 03/19/2025 1:45 PM CDT Office Visit [facility] [address], [address] [address] Jalyn Collins Che, MD [address] [facility] [address] [place] [address] 07/10/2025 11:[address] [facility] [address] [place] [id number] 07/10/2025 11:45 AM CDT Office Visit [facility] - Surgery [address], [address] [place] [address] Betsey Aranda MD [address] [place] [address] Health Maintenance Due Date Last Done Comments BONE DENSITY TESTING 1959 COLOGUARD (AGES 45-75) - COL ON CA SCREENING 1959 COLON MONITORING 1959 COLONOSCOPY - COLON CA SCREENING 1959 CT COLONOGRAPHY - COLON CA SCREENING 1959 Colorectal Cancer Screening 1959 FIT - COLON CA SCREENING 1959 FLEX SIG - COLON CA SCREENING 1959 LIPID TESTING 1959 MAMMOGRAM 1959 PAP SMEAR 1959 HIV SCREENING 1974 HEPATITIS C SCREENING 09/10/1977 DTAP/TDAP/TD VACCINES (1 - Tdap) 1978 PNEUMOCOCCAL VACCINE 50+ (1 of 1 - PCV) 2009 ZOSTER VACCINE (1 of 2) 2009 COVID-19 VACCINE (4 - 2023-2 5 season) 2024 08/22/2021, 02/09/2021, 01/12/2021 DEPRESSION SCREENING 09/18/2024 MEDICARE AWV CALENDAR YEAR 2024 SCREENING FOR DIABETES 10/24/2024 Respiratory Syncytial Virus (RSV) Vaccine Pt: or over 60 yrs (1 - 1-dose 75+ series) 2034 INFLUENZA VACCINE Completed 06/13/2024, 08/20/2020, 11/28/2019 HEPATITIS B VACCINE Aged Out No longe r eligible based on patient's age to complete this topic HIB VACCINE Aged Out No longer eligi ble based on patient's age to complete this topic HPV VACCINE Aged Out No longer eligi ble based on patient's age to complete this topic MENINGOCOCCAL (Group B) VACCINE SHARED DECISION-MAKING Aged Out No longer eligible based on patient's age to complete this topic MENINGOCOCCAL GROUPS A/C/Y/W VACCINE Aged Out No longer eligible b ased on patient's age to complete this topic Procedures Procedure Name Priority Date/Time Associated Diagnosis Comments CULTURE URINE COMPREHENSIVE Routine 12/04/2024 3:05 PM CDT Urge incontinence Nocturia Frequency of micturition [place] INSERT NON-INDWELLING BLADDER Routine 12/04/2024 3:01 PM CDT Urge incontinence Nocturia Frequency of micturition URINALYSIS AUTO - POINT OF CARE (AMB) [facility] Routine 12/04/2024 Urge incontinence Nocturia Frequency of micturition MAMMO STEREOTACTIC RIGHT BIOPSY Routine 10/24/2024 1:47 PM SERVICE SUPERINTENDENT Abnormal mammogram PATHOLOGY TISSUE EXAM (STL) Routine 10/24/2024 1:30 PM SERVICE SUPERINTENDENT Abnormal mammogram from Last 3 Months Results * CULTURE URINE COMPREHENSIVE (12/04/2024 3:05 PM CDT) Culture [facility] Comment: CULTURE, URINE, SPECIAL Micro Number: [id number] Test Status: Final Specimen Source: Urine, catheter Specimen Quality: Adequate Result: No Growth Test Performed at: [id number] [address] STANISLAW XAVIER MD Microbiology URINE SPECIMEN COLLECTION, CATHETERIZED / Unknown 12/04/2024 3:05 PM CDT 12/05/2024 2:43 AM CDT Jalyn Collins MD LAB - MICROBIOLOGY O RDERABLES [address] [address] * [place] INSERT NON-INDWELLING BLADDER (12/04/2024 3:01 PM CDT) Narrative Jalyn Collins Che, MD - 12/04/2024 3:01 PM CDT Jalyn Collins Che, MD 12/04/2024 4:39 PM The patient was prepped with betadine (or with hibiclens or other antiseptic agent if allergic to topical iodine). She understood the rationale for the procedure and agreed to the procedure. A 14F short female catheter was then advanced into the urethra and urine was collected for bedside urinalysis as well as a urine culture and/or formal urinalysis as needed. The post void residual is as noted in the progress note, as are results of the dipstick taken. The patient tolerated the procedure well. Jalyn Collins MD PROCEDURE/MINOR SURG ICAL ORDERABLES * (ABNORMAL) URINALYSIS AUTO - POINT OF CARE (AMB) [facility] (12/04/2024) Glucose UA neg OTHER LAB Bilirubin UA POCT neg OTHER LAB Ketones UA POCT neg OTHER LAB Specific Creighton UA 1.025 OTHER LAB Blood Urine POCT + OTHER LAB pH UA 5.5 OTHER LAB Protein UA neg OTHER LAB Urobilinogen UA 0.2 OTHER LAB Nitrite UA neg OTHER LAB WBC UA neg OTHER LAB Urine URINE / Unknown 12/04/2024 Jalyn Collins MD LAB - POINT OF CARE ORDERABLES OTHER LAB * Mammo Stereotactic Right Biopsy (10/24/2024 1:47 PM SERVICE SUPERINTENDENT) Anatomical Region Laterality Modality Breast Right Mammography 10/24/2024 2:12 PM SERVICE SUPERINTENDENT Addenda Addendum by Jonelle Ulloa MD on 10/28/2024 12:59 PM SERVICE SUPERINTENDENT Pathology is fibroadenoma with microcalcifications. The pathology is benign and concordant with the imaging assessment. Annual screening mammography is recommended. She is a patient of breast surgeon Dr. Aranda, who will discuss the results and recommendations with her. > Interpreting Provider: Jonelle Ulloa MD on 10/28/2024 12:57 PM Impressions 10/24/2024 2:15 PM SERVICE SUPERINTENDENT IMPRESSION: Successful stereotactic core biopsy of calcifications in the right breast. A clip was placed at the site of biopsy. Multiple samples were sent to pathology. Report will be addended when pathology results are available for imaging/pathology concordance. Follow-up recommendations based on pathology report will be given in the addendum. ASSESSMENT: Postprocedure mammogram for marker placement > Interpreting Provider: Jonelle Ulloa MD on 10/24/2024 2:15 PM Narrative 10/24/2024 2:15 PM SERVICE SUPERINTENDENT STEREOTACTIC GUIDED CORE BIOPSY - right breast - clip placed Right BREAST POST-BIOPSY MAMMOGRAM DATE: 10/24/24 HISTORY: Referred for right breast stereotactic-guided biopsy of calcifications. COMPARISON: Outside facility mammograms 06/24/19, 02/11/20, 08/12/24. BREAST PARENCHYMAL DENSITY: There are scattered areas of fibroglandular density. TECHNIQUE: The procedure was explained in detail to the patient, all questions were answered, and written informed consent was obtained. A pre-procedure time-out was performed using two patient identifiers, confirming patient identity and procedure to be performed. The correct side was marked. Using sterile technique, local anesthesia was achieved with lidocaine with epinephrine. Under stereotactic guidance via an approach from superior, a 10G vacuum-assisted biopsy device was used to obtain multiple core biopsies of the calcifications in the upper outer quadrant of the right breast; specimens were sent to pathology. Specimen radiograph confirms the presence of the calcifications in the tissue specimens. A mini cork clip was subsequently placed at the site of biopsy. The needle was then removed and hemostasis achieved. Post-procedure mammography demonstrates sales representative sales manager sampling of the calcifications and accurate deployment of the clip. There was minimal blood loss. The patient tolerated the procedure well with no immediate complications and was discharged to home with the standard post-core biopsy instruction sheet. Betsey Aranda MD MAMMO ORDERABLES * PATHOLOGY TISSUE EXAM (STL) (10/24/2024 1:30 PM SERVICE SUPERINTENDENT) Case Report Surgical Pathology Report Case: [id number] Authorizing Provider: Betsey Aranda MD Collected: 10/24/2024 01:30 PM Ordering Location: [facility] Received: 10/25/2024 06:29 AM Pathologist: Sandra Jones MD Specimen: Breast Core Biopsy, calcifications -Fibroadenomatous vs DCIS 10/28/2024 12:06 PM SERVICE SUPERINTENDENT [facility] Final Diagnosis Right breast, core biopsy: -- Fibroadenoma with microcalcifications 10/28/2024 12:06 PM SERVICE SUPERINTENDENT [facility] Clinical History Calcifications - fibroadenomatous vs DCIS 10/28/2024 12:06 PM [facility] Gross Description Received in formalin in a sterile container labeled Melanie Stanley, calcifications fibroadenomatous versus DCIS right breast core biopsy, are multiple yellow-rosenberg cores of fibroadipose tissue ranging from 0.3 cm to 1.6 cm. The specimen is placed in a filter bag and entirely submitted in cassettes A1 and A2. CH/eh 10/28/2024 12:06 PM SERVICE SUPERINTENDENT [facility] Microscopic Description Sections the breast core biopsy reveal a biphasic lesion, consistent with a fibroadenoma. There are scattered microcalcifications. There is no evidence of atypia or malignancy. 10/28/2024 12:06 PM [facility] Disclaimer All histochemical and/or immunohistochemical results are interpreted with controls that demonstrate appropriate staining reactions before reporting results. Note on use of immunocytochemistry reagents: This test was developed and its performance characteristic determined by [facility], Department of Laboratory Medicine. It has not been cleared or approved by the U.S. Food and Drug Administration (FDA). The FDA has determined that such clearance or approval is not necessary. The test is used for clinical purpose. It should not be regarded as investigational or for research. This laboratory is certified to perform high complexity testing. The performance characteristics of the IHC/ARTIE assays have been validated on formalin-fixed paraffin embedded tissues only. The assays have not been validated on decalcified tissues. Results should be interpreted with caution. 10/28/2024 12:06 PM [facility] Embedded Images 10/28/2024 12:06 PM [facility] Pathology/Cytolo gy SPECIMEN FROM BREAST OBTAINED BY CORE NEEDLE BIOPSY / Unknown 10/24/2024 1:30 PM SERVICE SUPERINTENDENT 10/25/2024 6:29 AM SERVICE SUPERINTENDENT Betsey Aranda MD LAB - PATHOLOGY/CYTO LOGY ORDERABLES [facility] [address] [place] [address] from Last 3 Months Care Teams Asic Engineer Relationship Specialty Start Date End Date Ciro Doyle MD [address] [place] [address] PCP - General Family Medicine 10/18/24
[2024-12-13 11:03] VITALS: BP 137/83; PULSE 79; RESP 16; TEMP 36; O2SAT 96
[2024-12-13] MEDS: LACTATED RINGERS 1,000 ML 150 ML IV CONT (11:13)
--- NOTE | 2024-12-13 11:14 | WPDANESEPPF ---
Anes - Initial Pre Proc Eval Procedure: Operation Date: 12/13/24 13:00 Proposed Procedures p Screening Colonoscopy - Bao Ramirez MD Date/Time: 12/13/24 11:14 Surgeon: Bao Ramirez MD Pre Op Diagnosis: Screening Patient Data Age: 64 Gender: F Height: 1.68 m Weight: 92.2 kg Last Vital Signs Temp 36.0 C L 12/13/24 11:03 Pulse 79 12/13/24 11:03 Resp 16 12/13/24 11:03 BP 137/83 12/13/24 11:03 Pulse Ox 96 12/13/24 11:03 O2 Del Method Room Air 12/13/24 11:03 Allergies Allergy/AdvReac Type Severity Reaction Status Date / Time levofloxacin AdvReac Intermediate Nausea Verified 12/13/24 11:01 Home Medications ?Medication ?Instructions ?Recorded ?Confirmed ?Type fluticasone propionate 50 1 spray intranasal DAILY #16 grams 10/09/23 12/13/24 Rx mcg/actuation nasal spray,suspension (Flonase Allergy Relief) albuterol sulfate 90 mcg/actuation 1 puff inhalation Q4H shortness of 02/23/24 12/03/24 History aerosol inhaler breath or wheezing nystatin 100,000 unit/gram topical See Rx Instructions .Route 07/10/24 12/03/24 Rx powder .COMPLEX #15 grams buspirone 10 mg tablet 10 mg PO BID #180 tabs 09/24/24 12/13/24 Rx gabapentin 300 mg capsule 300 mg PO QHS #90 caps 09/24/24 12/13/24 Rx trazodone 50 mg tablet See Rx Instructions .Route 09/24/24 12/13/24 Rx .COMPLEX #90 tabs triamcinolone acetonide 0.1 % 1 applic topical DAILY #15 grams 10/14/24 12/03/24 Rx topical ointment fluconazole 150 mg tablet 150 mg PO ONCE #1 tablet 10/31/24 12/02/24 Rx duloxetine 30 mg capsule,delayed 30 mg PO DAILY #90 caps 11/11/24 12/13/24 Rx release hydrocodone 5 mg-acetaminophen 325 1 tablet PO Q8H PRN pain #45 tabs 11/15/24 12/03/24 Rx mg tablet lisinopril 40 mg tablet 40 mg PO DAILY #90 tabs 12/02/24 12/13/24 Rx metoprolol succinate 50 mg 50 mg PO DAILY #90 tabs 12/02/24 12/13/24 Rx tablet,extended release 24 hr ondansetron 4 mg disintegrating 4 mg PO Q6H PRN nausea and 12/03/24 Rx tablet vomiting #4 tabs buspirone 15 mg tablet 15 mg PO BID #60 tabs 12/12/24 12/13/24 Rx Patient hx anesthesia problems: none Family hx anesthesia problems: none Results Review: All pre-operative results and documents have been reviewed as part of the pre-operative evaluation. [facility] Past Medical History Medical History Melanonychia Edema of right forearm Wrist weakness Right knee pain Nasal congestion Sleep apnea Degenerative joint disease of knee Left knee pain Medial meniscus tear Candidal intertrigo URI (upper respiratory infection) Left hip pain Arthralgia of left knee Urge incontinence Nausea Chronic leg pain Low vitamin B12 level Elevated glucose Elevated sed rate Elevated white blood cell count Elevated bilirubin Unintended weight loss Recurrent urinary tract infection Neuropathy Tensor fascia rut syndrome Bilateral foot pain Carpal tunnel syndrome of left wrist Burning sensation of feet Abdominal pain BMI over 35 Encounter for screening colonoscopy Urinary urgency Leg laceration Carpal tunnel syndrome of right wrist Clavicle fracture, sternal end Left radial head fracture Ulnar nerve compression Foot pain, right Bilateral carpal tunnel syndrome Acquired clavicle deformity Anxiety Benign essential hypertension Hypothyroidism Surgical History Surgical History History of ankle surgery H/O tubal ligation History of cholecystectomy History of appendectomy Family History Family History Father Carcinoma of colon Mother Depression Hypertension Sibling Diverticulitis Other Family history of malignant neoplasm Family history of malignant neoplasm of ovary Social History Social History Smoking status: Never smoker Second hand tobacco smoke exposure: No Alcohol intake: never Substance use: never Substance use type: does not use Do You Feel Safe in your Home?: Yes Lack of Transportation: No Lack of Food: Never True Current Housing: I Have Housing Concerned About Future Housing: No Difficulty Paying Gas/Electric Bills: No Difficulty Paying for Meds: No Currently Unemployed: No Education: High School Diploma/GED Difficulty w/ Childcare or Family Care: No Living arrangements: with family Occupation/Education: retired 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 Gender identity (if verbalized by the patient): Female Sexual Orientation (if Verbalized by the Patient): Straight or Heterosexual Spiritual care concerns: No Agree to blood products: Yes Anes - Eval Final PreProcedure Day of Procedure 12/13/24 11:14 Patient weight: obese Heart: regular rate and rhythm Lungs: clear to auscultation Airway: Mallampati scale class II Neurological: alert and oriented Last oral intake: >/= 8 hours ASA classification: III Emergent: no Anesthetic plan: proceed Anesthesia type and monitoring: general GIVS and standard monitoring Results Review: All pre-operative results and documents have been reviewed as part of the pre-operative evaluation. Informed Consent: The patient's anesthetic plan and its attendant risks and benefits were discussed with the patient/family/POA. Questions were solicited and answers provided to the satisfaction of the patient/family/POA.
--- NOTE | 2024-12-13 11:26 | P.HP_ITS ---
History of Present Illness History of Present Illness Consent: Risks, benefits, and alternatives have been discussed and questions answered. Patient agrees to proceed with procedure. Chief complaint: Screening Narrative: Melanie Stanley is a 64 year old female with last colonoscopy 2014, father had colon cancer Review of Systems Review of Systems: All systems reviewed & are unremarkable except as noted in HPI and below PMFSH Past Medical History Medical History (Updated 12/13/24 @ 11:27 by Bao Ramirez MD) Family history of colon cancer in father Melanonychia Edema of right forearm Wrist weakness Right knee pain Nasal congestion Sleep apnea Degenerative joint disease of knee Left knee pain Medial meniscus tear Candidal intertrigo URI (upper respiratory infection) Left hip pain Arthralgia of left knee Urge incontinence Nausea Chronic leg pain Low vitamin B12 level Elevated glucose Elevated sed rate Elevated white blood cell count Elevated bilirubin Unintended weight loss Recurrent urinary tract infection Neuropathy Tensor fascia rut syndrome Bilateral foot pain Carpal tunnel syndrome of left wrist Burning sensation of feet Abdominal pain BMI over 35 Encounter for screening colonoscopy Urinary urgency Leg laceration Carpal tunnel syndrome of right wrist Clavicle fracture, sternal end Left radial head fracture Ulnar nerve compression Foot pain, right Bilateral carpal tunnel syndrome Acquired clavicle deformity Anxiety Benign essential hypertension Hypothyroidism Surgical History Surgical History History of ankle surgery H/O tubal ligation History of cholecystectomy History of appendectomy Family History Family History Father Carcinoma of colon Mother Depression Hypertension Sibling Diverticulitis Other Family history of malignant neoplasm Family history of malignant neoplasm of ovary Social History Social History Smoking status: Never smoker Second hand tobacco smoke exposure: No Alcohol intake: never Substance use: never Substance use type: does not use Do You Feel Safe in your Home?: Yes Lack of Transportation: No Lack of Food: Never True Current Housing: I Have Housing Concerned About Future Housing: No Difficulty Paying Gas/Electric Bills: No Difficulty Paying for Meds: No Currently Unemployed: No Education: High School Diploma/GED Difficulty w/ Childcare or Family Care: No Living arrangements: with family Occupation/Education: retired 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 Gender identity (if verbalized by the patient): Female Sexual Orientation (if Verbalized by the Patient): Straight or Heterosexual Spiritual care concerns: No Agree to blood products: Yes Meds Home Medications and Allergies Home Medications ?Medication ?Instructions ?Recorded ?Confirmed ?Type fluticasone propionate 50 1 spray intranasal DAILY #16 grams 10/09/23 12/13/24 Rx mcg/actuation nasal spray,suspension (Flonase Allergy Relief) albuterol sulfate 90 mcg/actuation 1 puff inhalation Q4H shortness of 02/23/24 12/03/24 History aerosol inhaler breath or wheezing nystatin 100,000 unit/gram topical See Rx Instructions .Route 07/10/24 12/03/24 Rx powder .COMPLEX #15 grams buspirone 10 mg tablet 10 mg PO BID #180 tabs 09/24/24 12/13/24 Rx gabapentin 300 mg capsule 300 mg PO QHS #90 caps 09/24/24 12/13/24 Rx trazodone 50 mg tablet See Rx Instructions .Route 09/24/24 12/13/24 Rx .COMPLEX #90 tabs triamcinolone acetonide 0.1 % 1 applic topical DAILY #15 grams 10/14/24 12/03/24 Rx topical ointment fluconazole 150 mg tablet 150 mg PO ONCE #1 tablet 10/31/24 12/02/24 Rx duloxetine 30 mg capsule,delayed 30 mg PO DAILY #90 caps 11/11/24 12/13/24 Rx release hydrocodone 5 mg-acetaminophen 325 1 tablet PO Q8H PRN pain #45 tabs 11/15/24 12/03/24 Rx mg tablet lisinopril 40 mg tablet 40 mg PO DAILY #90 tabs 12/02/24 12/13/24 Rx metoprolol succinate 50 mg 50 mg PO DAILY #90 tabs 12/02/24 12/13/24 Rx tablet,extended release 24 hr ondansetron 4 mg disintegrating 4 mg PO Q6H PRN nausea and 12/03/24 Rx tablet vomiting #4 tabs buspirone 15 mg tablet 15 mg PO BID #60 tabs 12/12/24 12/13/24 Rx Allergies Allergy/AdvReac Type Severity Reaction Status Date / Time levofloxacin AdvReac Intermediate Nausea Verified 12/13/24 11:01 Vital Signs Vital Signs - 24 hr 12/13/24 11:03 Temperature 96.8 F L Pulse Rate 79 Respiratory Rate 16 Blood Pressure 137/83 Pulse Oximetry 96 Oxygen Delivery Room Air Exam Const: General: comfortable and no acute distress HENMT: Face/Nose/Sinus: Normal nares present Eyes: General: appearance normal, both eyes and all related structures Neck: Neck: no JVD Resp: Auscultation: clear to auscultation bilaterally Cardio: Rate: regular rate Rhythm: regular rhythm GI: Inspection: non-distended GI Palp: Yes Soft to palpation Skin: General skin exam: normal color Neuro: Speech: normal speech Extrem: General: normal to inspection Psych: Mental Status: mental status grossly normal Assessment and Plan Assessment and plan (1) Family history of colon cancer in father: Code(s): Z80.0 - Family history of malignant neoplasm of digestive organs Status: Acute Assessment and Plan: colonoscopy
[2024-12-13 11:49] VITALS: BP 126/74; PULSE 66; RESP 21; O2SAT 94
[2024-12-13 11:59] VITALS: BP 126/74; PULSE 61; RESP 23; O2SAT 94
[2024-12-13 12:09] VITALS: PULSE 73; RESP 23; O2SAT 96
== END 2024-12-13 12:21 | disposition home or self-care (01) ==
PROVIDERS: PCP Family Medicine; Referring Provider Family Medicine; Visit Provider Internal Medicine Gastroenterology
PROC: 0DJD8ZZ Inspection of Lower Intestinal Tract, Via Natural or Artificial Opening Endoscopic (ICD-10-PCS; CPT 45378; principal; 2024-12-13 13:00)
DX: Z12.11 Encounter for screening for malignant neoplasm of colon (principal); K63.5 Polyp of colon; K64.8 Other hemorrhoids; K57.30 Diverticulosis of large intestine without perforation or abscess without bleeding; E03.9 Hypothyroidism, unspecified; I10 Essential (primary) hypertension; E53.8 Deficiency of other specified B group vitamins; F41.9 Anxiety disorder, unspecified; G47.30 Sleep apnea, unspecified; N39.41 Urge incontinence; N32.81 Overactive bladder; G89.29 Other chronic pain; M79.662 Pain in left lower leg; G62.9 Polyneuropathy, unspecified; G56.03 Carpal tunnel syndrome, bilateral upper limbs; M95.8 Other specified acquired deformities of musculoskeletal system; E66.9 Obesity, unspecified; Z68.32 Body mass index [BMI] 32.0-32.9, adult; Z79.51 Long term (current) use of inhaled steroids; Z79.891 Long term (current) use of opiate analgesic; Z98.890 Other specified postprocedural states; Z90.49 Acquired absence of other specified parts of digestive tract; Z98.51 Tubal ligation status; Z80.41 Family history of malignant neoplasm of ovary; Z80.0 Family history of malignant neoplasm of digestive organs
CPT/HCPCS: 45385; 88305; J2704; J7120

== ENCOUNTER 2025-06-02 16:37 | Outpatient (CLI) | payer MEDICARE, SELFPAY ==
[2025-06-02 17:08] LABS: Hematocrit 42.4 % (37.0-47.0); Hemoglobin 13.8 g/dL (12.0-15.0); Mean Corpuscular HGB Conc 32.5 g/dl (32-36); Mean Corpuscular Hemoglobin 30.7 pg (26-34); Mean Corpuscular Volume 94.2 fl (80-100); Platelet Count Result 190 k/mm3 (150-375); Red Blood Count 4.50 M/mm3 (4.2-5.4); White Blood Count 5.2 K/mm3 (4.5-10.0)
[2025-06-02 17:23] LABS: Alanine Aminotransferase 25 U/L (6-35); Albumin Level 4.2 g/dL (3.5-5.1); Alkaline Phosphatase 95 U/L (38-126); Anion Gap 7 mmol/L (4-12); Aspartate Amino Transferase 35 U/L (14-36); Bilirubin,Total 0.7 mg/dL (0.2-1.3); Blood Urea Nitrogen 15 mg/dL (7-17); Calcium 9.1 mg/dL (8.4-10.2); Carbon Dioxide 30 mmol/L (22-30); Chloride 98 mmol/L (98-107); Estimated Glomerular Filt Rate > 60; Glucose 110 mg/dL (65-110); Potassium 4.0 mmol/L (3.4-5.0); Sodium 135 mmol/L (137-145); Total Protein 8.2 g/dL (6.3-8.2)
[2025-06-02 17:31] LABS: Hemoglobin A1C 5.7 % (<5.7)
[2025-06-02 17:40] LABS: Free T4 Free Thyroxine 0.87 ng/dL (0.78-2.19)
[2025-06-02 18:00] LABS: Thyroid Stimulating Hormone 2.560 uIU/mL (0.465-4.680)
[2025-06-02 18:18] LABS: Vitamin B12 270.0 pg/mL (239-931)
--- OUTSIDE RECORDS SUMMARY | 2025-06-02 19:00 | XMS_ITS | Clinical Summary ---
Author Organization [facility] Address [address] [place] [address] Care Team Providers Care Machine Hoop Maker Helper Name Role Phone Ciro Doyle MD Primary Care Provider [phone] Source Comments [facility],non-owned Affiliates and Associated Physician Practices is amultiple site organization consisting of ambulatory clinics and hospital sitesin [place], [place], [place] and [place]. This disclosure is being madepursuant to the Care Everywhere program and may not contain all information available regarding this patient. Last updated 18.[employer] Allergies Active Allergy Reactions Criticality Noted Date Comments Levofloxacin Other 12/04/2024 Stomach issues Medications * Be aware that medications may not be up to date on this document. Alwaysverify current medications with the patient. busPIRone (Buspar) 10 MG tablet TAKE 1 TABLET BY MOUTH TWICE A DAY ALONG WITH 15MG TABLET 5 Active DULoxetine (Cymbalta) 30 MG capsule Take 1 (one) capsule by mouth once daily 5 Active gabapentin (Neurontin) 300 MG capsule Take 1 (one) capsule by mouth at bedtime 5 Active lisinopril (Prinivil; Zestril) 20 MG tablet Take 1 (one) tablet by mouth 2 times daily 4 Active traZODone (Desyrel) 50 MG tablet Take 1 (one) tablet by mouth 5 Active HYDROcodone-ac etaminophen ([place]) 5-325 MG tablet Take 1 (one) tablet by mouth every 8 hours as needed For pain. 5 Active metoprolol succinate XL 24hr (Toprol XL) 50 MG tablet 5 Active busPIRone (Buspar) 15 MG tablet Take 1 (one) tablet by mouth 2 times daily Active hydrocortisone (Hytone) 2.5 % ointmentIndica tions:Intertri go Mix with ketoconazole cream and apply to affected area twice daily until clear. 30 days supply. 30 g 3 5 Active ketoconazole (Nizoral) 2 % creamIndicatio ns:Intertrigo Mix with hydrocortisone ointment and apply to affected area twice daily until clear. 30 days supply. 60 g 4 5 Active fluconazole (Diflucan) 200 MG tabletIndicati ons:Intertrigo Take 1 tablet by mouth once weekly for 4 weeks. 30 day supply. 4 tablet 5 Active oxyBUTYnin (Ditropan) 5 MG tablet TAKE 1 (ONE) TABLET BY MOUTH 2 TIMES DAILY 180 tablet 1 5 Active Active Problems No known active problems Encounters Date Type Department Care Team Description 04/11/2025 Refill [facility] - Dermatology [address] [place] [address] [place] [id number] Wes Lnae MD Refill Request from Last 3 Months Family History Medical [...] drink = 0.6 oz pur e alcohol) Comments No Sex and Gender Information Value Date Recorded Sex Assigned at Not on file Legal Sex Female 11:18 AM MANAGER NURSING Gender Identity Not on file Sexual Orientation Not on file Last Filed Vital Signs Vital Sign Reading Time Taken Comments Blood Pressure 134/82 12/04/2024 2:32 PM CDT Pulse 88 10/24/2024 11:40 AM MANAGER NURSING Temperature 36.2 C (97.1 F) 10/24/2024 11:40 AM MANAGER NURSING Respiratory Rate - - Oxygen Saturation - - Inhaled Oxygen Concentration - - Weight 94.3 kg (208 lb) 12/04/2024 2:32 PM CDT Height 158.8 cm (5' 2.5) 12/04/2024 2:32 PM CDT Body Mass Index 37.44 12/04/2024 2:32 PM CDT Plan of Treatment Upcoming Encounters Date Type Department Care Team (Late st Contact Info) Description 07/10/2025 11:00 AM CDT Appointment [facility] [address] [place] [address] 07/10/2025 11:45 AM CDT Office Visit [facility] - Surgery [address], [address] [place] [address] Betsey Aranda MD [address] [facility] [address] [place] [address] Health Maintenance Due Date Last Done Comments BONE DENSITY TESTING 1959 COLOGUARD (AGES 45-75) - COL ON CA SCREENING 1959 COLON MONITORING 1959 COLONOSCOPY - COLON CA SCREENING 1959 CT COLONOGRAPHY - COLON CA SCREENING 1959 Colorectal Cancer Screening 1959 FIT - COLON CA SCREENING 1959 FLEX SIG - COLON CA SCREENING 1959 LIPID TESTING 1959 MAMMOGRAM 1959 HIV SCREENING 1974 HEPATITIS C SCREENING 09/10/1977 DTAP/TDAP/TD VACCINES (1 - Tdap) 1978 PAP SMEAR 1980 PNEUMOCOCCAL VACCINE 50+ (1 of 1 - PCV) 2009 ZOSTER VACCINE (1 of 2) 2009 DEPRESSION SCREENING 09/18/2024 MEDICARE AWV CALENDAR YEAR 2024 SCREENING FOR DIABETES 10/24/2024 COVID-19 VACCINE (4 - 2024-2 6 season) 2025 08/22/2021, 02/09/2021, 01/12/2021 INFLUENZA VACCINE (#1) 2025 , 08/20/2020, 11/28/2019 Respiratory Syncytial Virus (RSV) Vaccine Pt: or over 60 yrs (1 - 1-dose 75+ series) 2034 HEPATITIS B VACCINE Aged Out No longe [...] on patient's age to complete this topic Insurance [facility] Care Teams Machine Hoop Maker Helper Relationship Specialty Start Date End Date Ciro Doyle MD [address] [place] [address] PCP - General Family Medicine 10/18/24
--- OUTSIDE RECORDS SUMMARY | 2025-06-02 19:00 | XMS_ITS | Clinical Summary ---
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 Name Role Phone Ciro Doyle MD Primary Care Provider [phone] Encounters Date Type Department Care Team Description 03/31/2025 Telephone [facility] Orthopedic Surgery[place] [address] [place] [address] Virgilio Bonilla DO Information from Last 3 Months Social History Tobacco Use Types Packs/Day Years Used Date Smoking Tobacco: Never Assessed Comments Unknown Sex and Gender Information Value Date Recorded Sex Assigned at Not on file Legal Sex Female 8:37 AM CDT Gender Identity Not on file Sexual Orientation Not on file Plan of Treatment Health Maintenance Due Date Last Done Comments Colorectal Cancer Screening Colonoscopy (10 Years) 1959 Hepatitis C 1977 DTaP, Tdap and Td Vaccines ( 1 - Tdap) 1978 Mammogram Screening 1999 Pneumococcal Vaccine: 50+ Ye ars (1 of 1 - PCV) 2009 Zoster Vaccines (1 of 2) 2009 Dexa Scan (General) 2024 PHQ-2 (Physician Robinson) 09/18/2024 COVID-19 Vaccine (1 - 2023-2 5 season) 2025 RSV Immunization or 60+ Years (1 - 1-dose 75+ series) 2034 Meningococcal B Vaccine Aged Out No l onger eligible based on patient's age to complete this topic Meningococcal Vaccine Aged Out No luís josias eligible based on patient's age to complete this topic RSV Immunizations Under 20 Months Aged Out No longer eligible based on patient's age to complete this topic Insurance [facility] Care Teams Acoustical Tile Drill Press Operator Relationship Specialty Start Date End Date Ciro Doyle MD [address] [place] [address] PCP - General FAMILY PRACTICE 03/28/25
== END 2025-06-02 16:38 | disposition home or self-care (01) ==
LOC: ANHLAB 16:41
PROVIDERS: PCP Family Medicine; Visit Provider Family Medicine
DX: K76.0 Fatty (change of) liver, not elsewhere classified (principal); E03.9 Hypothyroidism, unspecified; I10 Essential (primary) hypertension; E53.8 Deficiency of other specified B group vitamins; R73.09 Other abnormal glucose; R70.0 Elevated erythrocyte sedimentation rate
CPT/HCPCS: 36415; 80048; 80076; 82607; 83036; 84439; 84443; 85027; 85652